=== PATIENT | male | born 1955 | race Caucasian/White ===

== ENCOUNTER → 2017-04-04 08:35 | Outpatient (CLI) | payer MEDICARE, MEDICAID, SELFPAY ==
--- NOTE | 2017-04-04 08:42 | XR_ITS ---
XR foot LT min 3V HISTORY: Pain and swelling ITS.REASON: SWELLING ORDERING PHYSICIAN: Alex Sutherland MD PATIENT AGE: 61 years COMPARISON: None FINDINGS: No fracture or dislocation. No lytic or blastic change. There is normal mineralization.. The joint spaces are well-preserved. No significant degenerative/arthritic changes. No erosive changes evident. No erosive process apparent. No soft tissue calcification IMPRESSION: Negative left foot, no acute finding
== END ==
PROVIDERS: PCP Family Medicine; Visit Provider Family Medicine
DX: R60.9 Edema, unspecified (principal)
CPT/HCPCS: 73630

== ENCOUNTER → 2017-05-02 09:32 | Outpatient (POV) | payer MEDICARE, MEDICAID, SELFPAY | PROVIDERS: Family Provider Family Medicine; PCP Family Medicine; Visit Provider Internal Medicine | DX: Z00.00 Encounter for general adult medical examination without abnormal findings (principal) ==

== ENCOUNTER → 2017-10-31 10:58 | Outpatient (POV) | payer MEDICARE, MEDICAID, SELFPAY | PROVIDERS: Family Provider Family Medicine; PCP Family Medicine; Visit Provider Internal Medicine | DX: Z00.00 Encounter for general adult medical examination without abnormal findings (principal) ==

== ENCOUNTER → 2017-11-10 13:40 | Outpatient (CLI) | payer MEDICARE, MEDICAID, SELFPAY ==
--- NOTE | 2017-11-10 13:52 | CT_ITS ---
CT chest wo con HISTORY: Abnormal weight loss, follow-up lung mass,, follow-up surgery, emphysema ITS.REASON: EMPHYSEMA,ABNORMAL WEIGHT LOSS ORDERING PHYSICIAN: Alex Knight MD PATIENT AGE: 62 years COMPARISON: 11/02/2015 Technique: Axial images obtained with sagittal and coronal reformats. All CT scans at the facility use one or more dose reduction, viz: automated exposure control, ma/kV adjustment per patient size (including targeted exams where dose is matched to indication, i.e. head), or iterative reconstruction technique. FINDINGS: No mediastinal or hilar mass or adenopathy is evident. There are coronary artery calcifications. Normal heart size. No evidence of pericardial effusion. Centrilobular emphysematous changes are present. There has been a interval right upper lobectomy with removal of the right upper lobe mass. Compensatory hyperinflation of the right middle lobe and right lower lobe has occurred as expected. There is a 10 x 6 mm nodule along the anterior aspect of the major fissure. This has somewhat irregular contour and may been present previously measuring 4 mm. This is however difficult to ascertain due to the difference in the hyperinflation. There is calcified granuloma in the right lower lobe. Fibrotic changes are present in the apices. A 4 mm nodule is present in the left lower lobe and is unchanged. Parenchymal opacity is present in the lingula probably due to an area of atelectasis or fibrosis however not readily apparent on the previous exam. This measures 7 mm. Pleural-based nodule present in the left lower lobe anteriorly. No effusions or infiltrates. No acute bony anomalies. IMPRESSION: 1. Status post right upper lobectomy with removal of the right upper lobe mass. 2. Moderate to severe centrilobular edematous changes with hyperinflation. 3. 10 x 6 mm irregular nodular opacity is present along the right major fissure within the hyperexpanded right middle lobe. This could be due to an error postinflammatory fibrosis. Neoplasm is also a consideration. 3 month follow-up or PET CT may be of further value in this patient with emphysema and weight loss. There is also a new 7 mm nodular opacity within the lingula. This however probably related to area of atelectasis or fibrosis..
== END ==
PROVIDERS: PCP Family Medicine; Visit Provider Internal Medicine
DX: R63.4 Abnormal weight loss (principal); J43.9 Emphysema, unspecified
CPT/HCPCS: 71250

== ENCOUNTER → 2018-03-20 13:19 | Outpatient (POV) | payer MEDICARE, MEDICAID, SELFPAY | PROVIDERS: Visit Provider Internal Medicine | DX: Z00.00 Encounter for general adult medical examination without abnormal findings (principal) ==

== ENCOUNTER → 2018-04-30 12:06 | Outpatient (POV) | payer MEDICARE, MEDICAID, SELFPAY | PROVIDERS: Visit Provider Specialist | DX: R29.898 Other symptoms and signs involving the musculoskeletal system (principal) | CPT/HCPCS: 95886; 95908 ==

== ENCOUNTER → 2018-05-18 09:21 | Outpatient (CLI) | payer MEDICARE, MEDICAID, SELFPAY ==
--- NOTE | 2018-05-18 09:22 | MR_ITS ---
MR cervical spine wo con, MR 3-d myelogram/MRCP HISTORY: Left side neck pain X 1-2 months. Left arm pain, numbness and tingling. ITS.REASON: cervical spondylosis ORDERING PHYSICIAN: Caryn Chicas MD PATIENT AGE: 62 years Comparison: None TECHNIQUE: Standard multiplanar multiecho sequences are performed without contrast. 3-D MIP and myelographic images are also rendered and reviewed FINDINGS: There is a moderate degree of motion artifact especially on the axial images. This somewhat limits fine detail. There is normal alignment. The craniocervical junction has an unremarkable appearance. C2-C3: Unremarkable. C3-C4: Degenerative disc disease with mild bulging disc along with mild uncovertebral hypertrophy with mild bilateral foraminal narrowing. C4-C5: Degenerative disc disease with minimal bulging disc with right-sided foraminal narrowing from uncovertebral hypertrophy. There is borderline narrowing of the canal at this level. There is increased T2 signal involving the central aspect and inferior endplate of the C4 vertebral body also with some increased signal intensity involving the superior endplate of C5. This may represent type I endplate changes. C5-C6: Degenerative disc disease with bulging disc with posterior endplate osteophytes with associated central disc protrusion/disc osteophyte complex causing central canal stenosis of 8 mm with mild flattening of the cord anteriorly. There is bilateral lateral recess and foraminal narrowing from uncovertebral hypertrophy. C6-C7: Degenerative disc disease with bulging disc slightly eccentric toward the left with narrowing of the canal at 9 mm. Mild bilateral foraminal narrowing slightly greater on the right. C7-T1: Mild degenerative disc disease with bulging disc eccentric toward the left with mild left-sided foraminal narrowing. IMPRESSION: 1. Somewhat limited exam due to patient motion artifact. 2. Multilevel degenerative disc disease with bulging disc and uncovertebral hypertrophy with bilateral foraminal narrowing. The canal stenosis is greatest at C5-C6. Please see above for detailed description at each level. 3. Type I endplate changes at C4-C5 with borderline canal stenosis and right-sided foraminal narrowing at this level. 4. Degenerative disc disease at C5-C6 with bulging disc with posterior endplate osteophytes with associated central disc protrusion/disc osteophyte complex causing central canal stenosis of 8 mm with mild flattening of the cord anteriorly. There is bilateral lateral recess and foraminal narrowing from uncovertebral hypertrophy
== END ==
PROVIDERS: PCP Family Medicine; Visit Provider Specialist
DX: G56.00 Carpal tunnel syndrome, unspecified upper limb (principal); G62.9 Polyneuropathy, unspecified; M47.22 Other spondylosis with radiculopathy, cervical region; R29.898 Other symptoms and signs involving the musculoskeletal system
CPT/HCPCS: 72141; 76376

== ENCOUNTER 2018-05-23 08:00 | Outpatient (RCR) | payer MEDICARE, MEDICAID, SELFPAY ==
--- NOTE | 2018-05-18 08:57 | HMH.PTOPEV ---
PT Outpatient Evaluation Rehab PT Outpatient Evaluation Start: 05/18/18 08:18 Freq: Status: Active Protocol: Document 05/18/18 08:18 MARJ (Rec: 05/18/18 08:57 MARJ [id number]) Electronically Signed By Charly Melendez, PT 05/18/18 08:18 Outpatient Therapy Subjective History Subjective History Pt reports insidious onset L hand/wrist pain w/N&T, beginning ~2 months ago. Pt also reports intermittent episodes of N&T in L UE from mid bicep area to hand, with weakness. 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 Chief Complaint Pain Paresthesia Weakness Symptom Type Ache Dull Numbness Tingling Symptoms Relieved By Rest/Positioning Symptoms Aggravated By Physical Activity Lifting Prior Functional Limitations Lifting Housework Current Functional Limitations Lifting Housework Symptom Description Constant but Variable Level of pain today (0-10) 2 Pain scale - at its best (0-10) 1 Pain scale - at its worst (0-10) 4 Cervical Eval Palpation Cervical Muscles L Cervical Paraspinal L Upper Trapezius Cervical/Thoracic Palpation Findings Tenderness Posture Head/C-Spine Posture Sitting Position Flexed Head/C-Spine Posture Standing Position Flexed Flexibility Deficits Upper Trapezius Muscle Length (L) Mild Tightness Passive Joint Mobility Cervical PIVM WNL: R OA L OA R AA L AA R C2/3 L C2/3 R C3/4 L C3/4 R C4/5 L C4/5 R C5/6 L C5/6 R C6/7 L C6/7 R C7/T1 L C7/T1 AROM Cervical Spine Extension Active Range of 0-50 Motion (degrees) Cervical Spine Flexion Active Range of 0-60 Motion (degrees) Cervical Spine Right Lateral Flexion 0-40 Active Range of Motion (degrees) Cervical Spine Left La
== END 2018-05-23 08:05 | disposition home or self-care (01) ==
LOC: PT 08:00
PROVIDERS: Visit Provider Specialist
DX: R29.898 Other symptoms and signs involving the musculoskeletal system (principal); M47.22 Other spondylosis with radiculopathy, cervical region; G62.9 Polyneuropathy, unspecified; G56.00 Carpal tunnel syndrome, unspecified upper limb
CPT/HCPCS: 97010; 97012; 97014; 97035; 97110; 97163; 97760; G0283

== ENCOUNTER → 2018-06-21 12:33 | Outpatient (POV) | payer MEDICARE, MEDICAID, SELFPAY | PROVIDERS: Visit Provider Neurological Surgery | DX: Z00.00 Encounter for general adult medical examination without abnormal findings (principal) ==

== ENCOUNTER → 2018-07-11 13:58 | Outpatient (CLI) | payer MEDICARE, MEDICAID, SELFPAY ==
--- NOTE | 2018-07-11 14:03 | XR_ITS ---
XR wrist LT min 3V HISTORY wrist pain ITS.REASON: 3 views ORDERING PHYSICIAN: Ruth Lowe MD PATIENT AGE: 62 years Comparison: None FINDINGS: No fracture or dislocation. No lytic or blastic change. There is normal mineralization.. The joint spaces are well-preserved. No significant degenerative/arthritic changes. No erosive changes evident.. IMPRESSION: Negative wrist
--- NOTE | 2018-07-11 14:03 | XR_ITS ---
XR wrist RT min 3V HISTORY ITS.REASON: 3 views ORDERING PHYSICIAN: Ruth Lowe MD PATIENT AGE: 62 years Comparison: None FINDINGS: No fracture or dislocation. No lytic or blastic change. There is normal mineralization.. The joint spaces are well-preserved. No significant degenerative/arthritic changes. No erosive changes evident.. IMPRESSION: Negative wrist
== END ==
PROVIDERS: PCP Family Medicine; Visit Provider Orthopaedic Surgery
DX: M25.532 Pain in left wrist (principal); M25.531 Pain in right wrist
CPT/HCPCS: 73110

== ENCOUNTER → 2018-07-17 11:55 | Outpatient (CLI) | payer MEDICARE, MEDICAID, SELFPAY ==
[2018-07-17 12:23] LABS: INR 1.02 (0.9-1.1); Prothrombin Time 10.6 seconds (9.4-11.8)
[2018-07-17 12:26] LABS: Basophils # 0.1 K/mm3 (0-0.2); Basophils % 0.9 % (0.1-2.0); Eosinophils # 0.2 K/mm3 (0.0-0.4); Eosinophils % 2.1 % (0.1-12.0); Hematocrit 49.4 % (42.0-52.0); Hemoglobin 16.4 g/dL (14.1-18.0); Lymphocytes % 22.8 % (10-50); Mean Corpuscular HGB Conc 33.2 g/dL (31.8-35.4); Mean Corpuscular Hemoglobin 33.7 pg (27.0-31.2); Mean Corpuscular Volume 101.5 fl (80-94); Mean Platelet Volume 7.3 fl (7.4-10.4); Monocytes # 0.6 K/mm3 (0.1-1.0); Monocytes % 7.3 % (1.7-9.3); Neutrophils # 5.7 K/mm3 (1.8-7.8); Neutrophils % 66.9 % (37.0-80.0); Platelet Count 331 K/mm3 (142-424); Red Blood Count 4.87 M/mm3 (4.60-6.20); White Blood Count 8.6 K/mm3 (4.8-10.8)
[2018-07-17 13:11] LABS: Alanine Aminotransferase 27 U/L (12-78); Albumin Level 4.3 gm/dL (3.4-5.0); Albumin/Globulin Ratio 1.4 (1.1-1.8); Alkaline Phosphatase 86 U/L (46-116); Anion Gap 17.5 mEq/L (5-15); Aspartate Amino Transferase 17 U/L (15-37); Bilirubin,Total 0.6 mg/dL (0.2-1.0); Blood Urea Nitrogen 15 mg/dL (7-18); Calcium 9.2 mg/dL (8.5-10.1); Carbon Dioxide 26 mmol/L (21.0-32.0); Chloride 102 mmol/L (98-107); Creatinine,Serum 0.88 mg/dL (0.70-1.30); Estimated Glomerular Filt Rate 87 ml/min (>60); GFR (African American) 106 ML/MIN (>60); Globulin 3.1 gm/dl (1.3-3.2); Glucose 98 mg/dL (74-106); Potassium 4.5 mmoL/L (3.5-5.1); Sodium 141 mmol/L (136-145); Total Protein,Serum 7.4 gm/dL (6.4-8.2)
== END ==
PROVIDERS: Visit Provider Orthopaedic Surgery
DX: Z01.818 Encounter for other preprocedural examination (principal); Z51.81 Encounter for therapeutic drug level monitoring
CPT/HCPCS: 36415; 80053; 85025; 85610

== ENCOUNTER → 2018-08-14 12:35 | Outpatient (CLI) | payer MEDICARE, MEDICAID, SELFPAY ==
--- NOTE | 2018-08-14 12:38 | CT_ITS ---
CT chest wo con HISTORY: Follow-up lung nodules ITS.REASON: PULMONARY NODULE ORDERING PHYSICIAN: Alex Knight MD PATIENT AGE: 62 years COMPARISON: 11/10/2017, 11/02/2015 Technique: Axial images obtained. Sagittal, and coronal reformatted images are also generated and reviewed. All CT scans at the facility use one or more dose reduction, viz: automated exposure control, ma/kV adjustment per patient size (including targeted exams where dose is matched to indication, i.e. head), or iterative reconstruction technique. FINDINGS: No mediastinal or hilar mass. There are coronary artery calcifications with normal heart size. COPD with centrilobular emphysema. Biapical scarring is noted as before. There has been a prior right upper lobectomy. There is compensatory hyperinflation of the right middle and right lower lobe. There is a new 10 x 5 mm opacity in the central aspect of the right upper lobe axial image #33. Just inferior to this there is a parenchymal opacity which measures 7 mm x 4 mm. This appears slightly smaller compared to the previous exam. Scattered pulmonary fibrotic changes are noted. Within the right lower lobe, there are several new parenchymal opacities which have developed in the interval. As could be due to areas of inflammation/infection. One of the areas however somewhat more well-defined measuring approximately 12 mm. Neoplasm is also considered. Calcified granuloma is present in the right lower lobe unchanged. No new abnormalities evident on the left. No acute bony findings. IMPRESSION: 1. COPD with centrilobular emphysema and scattered areas of scarring. 2. There is a new 10 x 5 mm opacity in the right upper lung zone and there are new parenchymal opacities in the right lower lobe. These are nonspecific and could be postinflammatory/infectious or neoplastic. Follow-up recommended.
== END ==
PROVIDERS: PCP Family Medicine; Visit Provider Internal Medicine
DX: R91.8 Other nonspecific abnormal finding of lung field (principal)
CPT/HCPCS: 71250

== ENCOUNTER → 2018-09-18 10:40 | Outpatient (POV) | payer MEDICARE, MEDICAID, SELFPAY ==
--- NOTE | 2018-09-18 11:51 | XR_ITS ---
XR chest 2V HISTORY: Cough, congestion, COPD ITS.REASON: pre op ORDERING PHYSICIAN: Alex Knight MD PATIENT AGE: 63 years COMPARISON: 07/24/2018 FINDINGS: Unremarkable cardiovascular structures. There is COPD with hyperexpansion and attenuation of the peripheral pulmonary vessels. No lobar consolidation or collapse Post surgical changes are present in the right hilum. There is right apical pleural thickening. IMPRESSION: COPD, postsurgical change, no change with no acute finding
[2018-09-18 12:20] LABS: Basophils # 0.1 K/mm3 (0-0.2); Eosinophils # 0.2 K/mm3 (0.0-0.4); Hematocrit 47.3 % (42.0-52.0); Hemoglobin 15.1 g/dL (14.1-18.0); Lymphocytes # 2.1 K/mm3 (0.7-4.5); Lymphocytes % 27.1 % (10-50); Mean Corpuscular Hemoglobin 32.2 pg (27.0-31.2); Mean Corpuscular Volume 100.6 fl (80-94); Monocytes # 0.6 K/mm3 (0.1-1.0); Monocytes % 7.6 % (1.7-9.3); Neutrophils # 4.8 K/mm3 (1.8-7.8); Neutrophils % 61.3 % (37.0-80.0); Platelet Count 365 K/mm3 (142-424); Red Cell Distribution Width 13.7 % (11.5-17.5); White Blood Count 7.9 K/mm3 (4.8-10.8)
[2018-09-18 13:32] LABS: Alanine Aminotransferase 25 U/L (12-78); Albumin Level 3.6 gm/dL (3.4-5.0); Albumin/Globulin Ratio 1.1 (1.1-1.8); Alkaline Phosphatase 81 U/L (46-116); Anion Gap 14.4 mEq/L (5-15); Aspartate Amino Transferase 19 U/L (15-37); Bilirubin,Total 0.5 mg/dL (0.2-1.0); Blood Urea Nitrogen 25 mg/dL (7-18); C-Reactive Protein 1.7 mg/L (0.0-0.9); Calcium 9.4 mg/dL (8.5-10.1); Carbon Dioxide 29 mmol/L (21.0-32.0); Chloride 103 mmol/L (98-107); Creatinine,Serum 0.75 mg/dL (0.70-1.30); Estimated Glomerular Filt Rate 105 ml/min (>60); GFR (African American) 127 ML/MIN (>60); Globulin 3.2 gm/dl (1.3-3.2); Glucose 79 mg/dL (74-106); Potassium 4.4 mmoL/L (3.5-5.1); Sodium 142 mmol/L (136-145); Total Protein,Serum 6.8 gm/dL (6.4-8.2)
[2018-09-20 16:10] LABS: Alpha-1-Antitrypsin 194 mg/dL (90-200)
[2018-09-21 13:51] LABS: Phenotype (PI) MS
== END ==
LOC: SC 10:41 → RAD 11:17
PROVIDERS: PCP Family Medicine; Visit Provider Internal Medicine
DX: J43.9 Emphysema, unspecified (principal); J42 Unspecified chronic bronchitis
CPT/HCPCS: 36415; 71046; 80053; 82103; 82104; 85025; 86140

== ENCOUNTER → 2018-11-06 12:53 | Outpatient (CLI) | payer MEDICARE, MEDICAID, SELFPAY ==
--- NOTE | 2018-11-06 13:06 | CT_ITS ---
PROCEDURE: CT CHEST WO CON CLINICAL INDICATION: PULMONARY NODULE, follow-up pulmonary nodule COMPARISON: CHW CT CHEST W/ CONTRAST from 11/02/[address] chest wo con from 11/10/[address] chest wo con from 08/14/2018 TECHNIQUE: Axial images obtained with sagittal and coronal reformats. All CT scans at the facility use one or more dose reduction, viz: automated exposure control, ma/kV adjustment per patient size (including targeted exams where dose is matched to indication, i.e. head), or iterative reconstruction technique. FINDINGS: Normal heart size. Coronary artery calcifications are present. COPD with centrilobular emphysema with biapical fibrosis. There are scattered noncalcified pulmonary nodular lesions once again noted. Previously noted opacities in the right lower lobe has shown improvement consistent with improving inflammatory/infectious process.. No new nodular lesions are evident. IMPRESSION: Previously noted nodular opacities in the right lung base have improved. Remaining scattered nodular densities are unchanged with no new abnormalities evident. COPD with centrilobular emphysema and scarring noted Dictated by: Bryce Darden MD 11/07/2018 11:19 Signed by: <Electronically signed by Bryce Darden MD in [facility]> 11/07/2018 11:19
== END ==
PROVIDERS: PCP Family Medicine; Visit Provider Internal Medicine
DX: R91.8 Other nonspecific abnormal finding of lung field (principal)
CPT/HCPCS: 71250

== ENCOUNTER → 2019-09-27 07:26 | Outpatient (CLI) | payer MEDICARE, OTHER, SELFPAY ==
--- NOTE | 2019-09-27 07:32 | CT_ITS ---
PROCEDURE: CT LUNG SCREENING CLINICAL INDICATION: H/O NICOTINE DEPENDENCE 168 pack year smoking history. Quit 4 years ago. COMPARISON: CT CHEST WO CON from 11/06/2018 TECHNIQUE: The exam was performed on a GE Light Speed [address] scanner using 2.90 mGy CTDI. A low dose helical CT CHEST was performed on a multi-detector scanner. All CT scans at the facility use one or more dose reduction, viz: automated exposure control, ma/kV adjustment per patient size (including targeted exams where dose is matched to indication, i.e. head), or iterative reconstruction technique. The LDCT was performed in a facility that meets the criteria for the screening program. Data regarding this exam was submitted to ACR which is an approved registry. The order for this exam indicates that it came as a result of a lung cancer screening counseling shard decision-making visit that included all the elements required of such a visit including smoking cessation. The radiologist interpreting this exam meets the CMS criteria for the LDCT lung cancer screening program. The exam is reported using the Lung-RADS classification scale and reported to the ACR registry. NOTE: This study was performed for the specific purposes of lung cancer screening and is not an alternative to diagnostic chest CT. RADIATION DOSE: CTDI vol(CT dose Index-volume) = 2.90mG DLP (Dose Length Product) = 124.81 mGcm Lung Rads Category: FINDINGS: The the the the the the the the the the the the the the the a COPD with centrilobular and paraseptal emphysema and scattered areas of scarring. There has been interval development of an irregular spiculated nodule within the right upper lobe posteriorly measuring approximately 12 mm. This abuts the major fissure causing some retraction of the major fissure anteriorly. This is suspicious for neoplasm. There is some associated bronchial thickening at this region. There is evidence of old granulomatous disease. There is some nodularity of the left major fissure at 7 x 3 mm in not significantly changed. Additional 3 mm nodule noted along the left major fissure inferiorly. The OTHER FINDINGS: Coronary artery calcifications IMPRESSION: Lung rads category 4 B moderately suspicious. 10 mm spiculated right upper lobe nodule with some associated bronchial thickening. Suggest pulmonology consult. The nodule should be accessible or tissue sampling via bronchoscopy. Also consider diagnostic chest CT without and with contrast as an area dense infiltrate/atelectatic change would be included in the differential diagnosis Dictated by: Bryce Darden MD 10/02/2019 08:48 Electronically signed by Bryce Darden MD in [place] 10/02/2019 08:48
== END ==
PROVIDERS: PCP Family Medicine; Visit Provider Family Medicine
DX: Z87.891 Personal history of nicotine dependence (principal); Z12.2 Encounter for screening for malignant neoplasm of respiratory organs

== ENCOUNTER 2019-10-22 09:22 | Outpatient (RCR) | payer MEDICARE, OTHER, SELFPAY | END 2020-07-14 13:18 | disposition home or self-care (01) | LOC: PT 09:22 | PROVIDERS: Visit Provider Internal Medicine Pulmonary Disease | DX: J43.9 Emphysema, unspecified (principal) ==

== ENCOUNTER → 2020-05-27 08:27 | Outpatient (CLI) | payer MEDICARE, OTHER, SELFPAY ==
--- NOTE | 2020-05-27 08:37 | XR_ITS ---
PROCEDURE: XR CHEST 2V CLINICAL HISTORY: ABN WEIGHT LOSS COMPARISON: CR CXR CHEST(2 VIEWS-NOT PORTABLE) from 09/18/2013 CR CXR CHEST(2 VIEWS-NOT PORTABLE) from 10/28/2015 CR [id number] XR chest portable from 07/24/[address] CHEST WO CON from 11/06/2018 FINDINGS: The cardiomediastinal silhouette and pulmonary vascularity are within normal limits. COPD changes with biapical scarring. Status post right upper lobectomy. No lobar consolidation or collapse. No acute bony abnormalities. IMPRESSION: COPD. No change with no acute finding Dictated by: Bryce Darden MD 05/27/2020 09:22 Bryce Darden MD in [place] 05/27/2020 09:22
== END ==
PROVIDERS: PCP Family Medicine Adult Medicine; Visit Provider Family Medicine Adult Medicine
DX: R63.4 Abnormal weight loss (principal)
CPT/HCPCS: 71046

== ENCOUNTER → 2020-06-26 09:45 | Outpatient (CLI) | payer MEDICARE, OTHER, SELFPAY ==
--- NOTE | 2020-06-26 09:49 | XR_ITS ---
PROCEDURE: XR WRIST RT MIN 3V CLINICAL INDICATION: RT wrist pain COMPARISON: No exams were available for comparison FINDINGS: No fracture or dislocation. No lytic or blastic change. There is normal mineralization. The joint spaces are well-preserved. No significant degenerative/arthritic changes. No erosive changes evident. Other findings:None. IMPRESSION: No acute findings. Dictated by: Bryce Darden MD 06/26/2020 17:16 Bryce Darden MD in [place] 06/26/2020 17:16
== END ==
PROVIDERS: Visit Provider Orthopaedic Surgery
DX: M25.531 Pain in right wrist (principal)
CPT/HCPCS: 73110

== ENCOUNTER → 2020-06-30 08:53 | Outpatient (CLI) | payer MEDICARE, OTHER, SELFPAY ==
--- NOTE | 2020-06-30 09:38 | CT_ITS ---
PROCEDURE: CT CHEST WO/W CON CLINCAL INDICATION: ABNORMAL WEIGHT LOSS Only hx obtained from patient, smoker, follow-up pulmonary nodule COMPARISON: CT CT CHEST WO CON from 11/06/[address] LUNG SCREENING from 09/27/2019 TECHNIQUE: IV Contrast: 75ml Isovue 370 Axial images obtained with sagittal and coronal reformats. All CT scans at the facility use one or more dose reduction, viz: automated exposure control, ma/kV adjustment per patient size (including targeted exams where dose is matched to indication, i.e. head), or iterative reconstruction technique. FINDINGS: HEART AND MEDIASTINAL STRUCTURES: No mediastinal or hilar mass or adenopathy. Coronary artery calcifications are present. No evidence of aortic aneurysm or dissection no large central pulmonary embolus evident. Peripheral pulmonary arteries are not well opacified. LUNGS AND PLEURAL SPACES: Postsurgical changes in the right hilum from prior right upper lobectomy with hyperexpansion of the right middle and right lower lobe. COPD with centrilobular and panlobular emphysematous changes. Spiculated nodular opacity once again noted in the right upper lung zone at 11 x 11 mm. This is not significantly changed. There is some volume loss in this region with some vascular crowding. The interval stability would argue against a malignant process. PET CT suggested for further evaluation. Pulmonary fibrotic changes are present. There is a new spiculated nodule in the right lower lobe posteriorly at 16 x 12 mm atelectatic or fibrotic changes are present medial to this lesion. There is mild generalized bronchial thickening. BONY STRUCTURES: No acute bony abnormalities apparent. ADDITIONAL FINDINGS: No other significant abnormalities. IMPRESSION: 1. Prior right upper lobectomy with COPD and centrilobular and panlobular emphysematous changes. Scattered areas of scarring. 2. Stable spiculated opacity in the right upper lung zone in the hyperexpanded right middle lobe. New spiculated nodular opacity in the right lower lobe at 16 x 12 mm. Either 1 of these areas could be related to neoplasm or scarring. Recommend PET-CT for further evaluation. There is some new atelectatic/fibrotic change in the right lower lobe medially. New area of atelectasis is present in the right middle lobe medially. Dictated by: Bryce Darden MD 07/01/2020 06:39 Bryce Darden MD in [place] 07/01/2020 06:39
--- NOTE | 2020-06-30 09:38 | CT_ITS ---
PROCEDURE: CT ABDOMEN PELVIS WO/W CON CLINICAL INDICATION: ABNORMAL WEIGHT LOSS Abnormal weight loss, history of lung cancer COMPARISON: CT CHW CT CHEST W/ CONTRAST from 11/02/2015 TECHNIQUE: IV Contrast: 75ML Isovue 370 Oral Contrast None Axial images obtained with sagittal and coronal reformats. All CT scans at the facility use one or more dose reduction, viz: automated exposure control, ma/kV adjustment per patient size (including targeted exams where dose is matched to indication, i.e. head), or iterative reconstruction technique. FINDINGS: The liver, spleen adrenal glands, and pancreas have an unremarkable appearance. There has been a prior cholecystectomy with mild biliary ectasia. There is a moderate amount of retained colonic feces. No intestinal obstruction or free air. The appendix is not clearly delineated. There are numerous unopacified bowel loops in the abdomen and pelvis. No obvious mass adenopathy or abnormal fluid collection evident. No acute bony findings. Grade 1 spondylitic spondylolisthesis L5-S1. No lytic or blastic changes apparent. IMPRESSION: 1. No acute finding. 2. Multiple unopacified bowel loops in the abdomen or pelvis which could obscure or mimic pathology. If symptoms persist, consider repeat exam with IV and oral contrast. Dictated by: Bryce Darden MD 07/01/2020 06:48 Bryce Darden MD in [place] 07/01/2020 06:48
--- NOTE | 2020-06-30 09:38 | CT_ITS ---
PROCEDURE: CT SOFT TISSUE NECK WO/W CON CLINICAL HISTORY: ABNORMAL WEIGHT LOSS Weight loss, history lung cancer COMPARISON: CT CT CHEST WO/W CON from 06/30/2020 TECHNIQUE: Oral Contrast: None IV Contrast: 75 mL Isovue 370 Axial images obtained with sagittal and coronal reformats. All CT scans at the facility use one or more dose reduction, viz: automated exposure control, ma/kV adjustment per patient size (including targeted exams where dose is matched to indication, i.e. head), or iterative reconstruction technique. FINDINGS: No mass, adenopathy, or abnormal fluid collections are evident. The parotid and submandibular glands have an unremarkable appearance as does the thyroid gland. The base of the uvula is slightly thickened. This is of questionable clinical significance and has a symmetric appearance. There is some tonsillar crypt calcifications. The epiglottis appears unremarkable as does the vocal folds. Upper thoracic images show centrilobular and panlobular emphysematous changes with a spiculated nodule in the right upper lung zone at 11 mm. This is described further in the chest CT performed on the same day. Mild mucosal thickening involves the ethmoid sinuses. There is moderate rightward nasal septal deviation. Mild mucosal thickening of the sphenoid sinus on the right. There are degenerative changes of the thoracic spine IMPRESSION: Essentially negative CT of the neck. Braun mm spiculated nodule right upper lung zone Dictated by: Bryce Darden MD 07/02/2020 09:50 Bryce Darden MD in [place] 07/02/2020 09:50
== END ==
PROVIDERS: PCP Family Medicine Adult Medicine; Visit Provider Family Medicine Adult Medicine
DX: R63.4 Abnormal weight loss (principal)
CPT/HCPCS: 70492; 71270; 74178; Q9967

== ENCOUNTER → 2021-06-23 08:18 | Outpatient (CLI) | payer MEDICARE, OTHER, SELFPAY ==
--- NOTE | 2021-06-23 08:28 | XR_ITS ---
FINAL REPORT CLINICAL HISTORY: wrist pain COMPARISON: 06/26/2020 FINDINGS: RIGHT WRIST 3 views were obtained. There is no acute fracture or dislocation. There are mild degenerative changes. There is no soft tissue abnormality. IMPRESSION: Degenerative change with no acute bony abnormality. Reviewed, Interpreted and Dictated by Jose Lockwood III, MD Transcribed by Kriss Burton Authenticated by Jose Lockwood III, MD on 06/23/2021 09:38:06 AM [facility]
== END ==
PROVIDERS: PCP Nurse Practitioner Family; Visit Provider Orthopaedic Surgery
DX: M25.531 Pain in right wrist (principal)
CPT/HCPCS: 73110

== ENCOUNTER → 2021-07-02 13:01 | Outpatient (CLI) | payer MEDICARE, OTHER, SELFPAY ==
--- NOTE | 2021-07-02 13:05 | CT_ITS ---
FINAL REPORT CLINICAL HISTORY: smoker for 53 years, currently smoking, smoke 2-2.5 packs per day, copd and emphysema COMPARISON: June 30, 2020 and September 27, 2019 FINDINGS: Low-Dose Chest CT CTDI vol (mGy): 2.90 DLP (mGy-cm): 116.98 Axial images were obtained from the lung apex to the mid abdomen by computed tomography. Low-dose protocol was utilized. FINDINGS: CHEST: There is no axillary adenopathy. There is no hilar or mediastinal adenopathy. The heart is proper size. There is no pericardial or pleural effusion. Limited images of the upper abdomen are unremarkable. Lung window images demonstrate moderately advanced changes of centrilobular emphysema. There is scarring at the lung apices. There is a 19 x 12 mm spiculated mass in the upper right lung which has increased in size since the previous exam and is concerning for malignancy. This finding is well seen on image 32 of series 3. The previously questioned density in the right lung base is no longer seen and is probably post-inflammatory. The left lung is clear. IMPRESSION: Increased in size spiculated mass in the upper right lung now measuring 19 x 12 mm. This finding is highly concerning for malignancy. Lung RADS category 4 B. Recommend PET scan for further evaluation. Reviewed, Interpreted and Dictated by Terry Gonzalez MD Transcribed by Amanda Evangelista Authenticated by Terry Gonzalez MD on 07/02/2021 03:05:14 PM [facility]
== END ==
PROVIDERS: PCP Nurse Practitioner Family; Visit Provider Nurse Practitioner Family
DX: Z87.891 Personal history of nicotine dependence (principal); Z12.2 Encounter for screening for malignant neoplasm of respiratory organs; R91.1 Solitary pulmonary nodule; J44.9 Chronic obstructive pulmonary disease, unspecified
CPT/HCPCS: 71271

== ENCOUNTER → 2022-04-11 10:39 | Outpatient (CLI) | payer MEDICARE, SELFPAY ==
--- NOTE | 2022-04-11 10:48 | XR_ITS ---
FINAL REPORT TECHNIQUE: 3 views CLINICAL HISTORY: UPPER BACK PAIN FINDINGS: There is no fracture present. There is no malalignment. There are no significant degenerative changes. Visualized lungs demonstrate right apical pleural thickening and linear scarring in the right perihilar region, more evident than on prior exam. IMPRESSION: No acute process. Reviewed, Interpreted and Dictated by Terry Gonzalez MD Transcribed by Codi Dowell Authenticated and [facility]
== END ==
PROVIDERS: PCP Nurse Practitioner Family; Visit Provider Nurse Practitioner Family
DX: M54.6 Pain in thoracic spine (principal)
CPT/HCPCS: 72072

== ENCOUNTER 2022-05-31 03:30 | Emergency (ER) | payer MEDICARE, SELFPAY ==
--- NOTE | 2022-05-31 03:49 | ECG_ITS ---
APPROVED REPORT Exam: Resting ECG HR:85 bpm ECG Measurements Heart Rate 85 AXES QRSd 98 QRS 11 QT 383 T 80 QTc 425 Conclusion Wandring Atrial pacemaker RIGHT VENTRICULAR CONDUCTION DELAY [RSR (QR) IN V1/V2] ABNORMAL ECG UNCONFIRMED REPORT Electronically signed by : Clay Hassan MD 06/01/2022 01:44:27
[2022-05-31 03:50] VITALS: BMI 21.7
[2022-05-31 03:52] VITALS: BP 120/76; PULSE 94; RESP 16; TEMP 36.6; O2SAT 97; BMI 21.7
--- NOTE | 2022-05-31 03:52 | XR_ITS ---
PROCEDURE INFORMATION: Exam: XR Chest Exam date and time: 05/31/2022 4:11 AM Age: 66 years old Clinical indication: Shortness of breath; Patient HX: Copd; Additional info: SOA TECHNIQUE: Imaging protocol: Radiologic exam of the chest. Views: 2 views. COMPARISON: CT LUNG SCREENING 07/02/2021 1:23 PM FINDINGS: Lungs: 2.4 cm irregular density is seen in the right upper lobe. The lungs are hyperinflated. Multiple surgical clips are seen in the hilum. Pleural spaces: Unremarkable. No pleural effusion. No pneumothorax. Heart/Mediastinum: Unremarkable. No cardiomegaly. Diaphragm: Tenting of the right hemidiaphragm is noted. Bones/joints: Unremarkable. IMPRESSION: 1. 2.4 cm irregular density right mid to upper chest underlying mass suspected, 1 was seen in this location on the prior CT. Correlation with follow-up CT recommended. 2. COPD without focal infiltrate.
[2022-05-31 04:20] LABS: Basophils # 0.1 K/mm3 (0-0.2); Basophils % 1.1 % (0.1-2.0); Eosinophils # 0.4 K/mm3 (0.0-0.4); Eosinophils % 3.4 % (0.1-12.0); Hematocrit 42.1 % (42.0-52.0); Hemoglobin 13.7 g/dL (14.1-18.0); Lymphocytes # 1.2 K/mm3 (0.7-4.5); Lymphocytes % 10.2 % (10-50); Mean Corpuscular HGB Conc 32.4 g/dL (31.8-35.4); Mean Corpuscular Hemoglobin 30.7 pg (27.0-31.2); Mean Corpuscular Volume 94.7 fl (80-94); Monocytes # 0.9 K/mm3 (0.1-1.0); Monocytes % 7.9 % (1.7-9.3); Neutrophils # 9.3 K/mm3 (1.8-7.8); Neutrophils % 77.5 % (37.0-80.0); Platelet Count 542 K/mm3 (142-424); Red Blood Count 4.45 M/mm3 (4.60-6.20); Red Cell Distribution Width 13.6 % (11.5-17.5)
[2022-05-31 04:22] LABS: Alanine Aminotransferase 20 U/L (12-78); Albumin Level 3.5 g/dl (3.5-5.0); Alkaline Phosphatase 128 U/L (38-126); Anion Gap 10.4 mEq/L (5-15); Aspartate Amino Transferase 23 U/L (17-59); Bilirubin,Total 0.6 mg/dl (0.2-1.3); Blood Urea Nitrogen 7 mg/dl (9-20); Calcium 8.3 mg/dl (8.4-10.2); Carbon Dioxide 31 mmol/L (22.0-30.0); Chloride 91 mmol/L (98-107); Creatinine Clearance Estimated 62 mL/min (50-200); Estimated Glomerular Filt Rate 166 ml/min (>60); GFR (African American) 201 ML/MIN (>60); Globulin 3.4 g/dL (1.3-3.2); Glucose 98 mg/dl (74-100); Magnesium 2.1 mg/dl (1.6-2.3); Potassium 3.4 mmoL/L (3.5-5.1); Sodium 129 mmol/L (136-145); Total Protein,Serum 6.9 g/dl (6.3-8.2)
[2022-05-31 04:23] LABS: Lactic Acid 1.1 mmol/L (0.7-2.1)
[2022-05-31 04:28] LABS: C-Reactive Protein 76.5 mg/L (0-4)
[2022-05-31 04:37] LABS: Troponin I < 0.01 ng/ml (0.00-0.034)
--- NOTE | 2022-05-31 04:53 | PC.NURSE ---
Rounded on pt. Pt/family updated on POC. Warm blanket provided.
[2022-05-31 05:00] VITALS: BP 122/74; PULSE 82; RESP 15; O2SAT 95
[2022-05-31 05:06] LABS: Erythrocyte Sedimentation Rate 58 mm/hr (0-20)
--- NOTE | 2022-05-31 05:13 | CT_ITS ---
PROCEDURE INFORMATION: Exam: CTA Chest With Contrast Exam date and time: 05/31/2022 5:32 AM Age: 66 years old Clinical indication: Shortness of breath; Additional info: SOA and pain on inspiration TECHNIQUE: Imaging protocol: Computed tomographic angiography of the chest with contrast. 3D rendering (Not supervised by radiologist): MIP and/or 3D reconstructed images were created by the technologist. Radiation optimization: All CT scans at this facility use at least one of these dose optimization techniques: automated exposure control; mA and/or kV adjustment per patient size (includes targeted exams where dose is matched to clinical indication); or iterative reconstruction. Contrast material: ISOVUE; Contrast volume: 70 ml; Contrast route: INTRAVENOUS (IV); REPORTING DATA: Count of CT and Cardiac NM exams in prior 12 months: This patient has received [address] and 0 known cardiac nuclear medicine studies in the 12 months prior to the current study. COMPARISON: CT LUNG SCREENING 07/02/2021 1:23 PM FINDINGS: Pulmonary arteries: Normal. No pulmonary emboli. Aorta: Unremarkable. No aortic aneurysm. No aortic dissection. Lungs: Severe centrilobular emphysema with large bulla in the right lung apex. Areas of linear scarring are noted. There is a cavitary lesion containing some soft tissue within the anterior right upper lobe see series 5, image 48 measuring 4.1 x 2.0 cm. This has somewhat of an irregular wall. Pleural spaces: Unremarkable. No pneumothorax. No pleural effusion. Heart: Unremarkable. No cardiomegaly. No pericardial effusion. Coronary arteries: Coronary atherosclerosis. Lymph nodes: Some calcified hilar lymph nodes. Bones/joints: Unremarkable. No acute fracture. Soft tissues: Unremarkable. IMPRESSION: 1. Severe centrilobular emphysema. Cavitary lesion in the right upper lobe contains some soft tissue may represent fungus and or neoplasm. No acute infiltrates noted. 2. Coronary atherosclerosis. COMMENTS: In the absence of a history or active diagnosis of lung cancer, it is recommended that this patient with emphysema be evaluated for enrollment in a low dose CT lung cancer screening program.
--- NOTE | 2022-05-31 05:26 | PC.NURSE ---
Pt gone to RAD via stretcher
--- NOTE | 2022-05-31 05:38 | PC.NURSE ---
Pt back from RAD
--- NOTE | 2022-05-31 05:41 | HMH.EDCP ---
Discharge Plan Disposition Patient Disposition: Home, Self-Care Prescriptions Prescriptions: No Action hydrochlorothiazide 12.5 mg capsule 12.5 mg PO DAILY aspirin [Adult Low Dose Aspirin] 81 mg tablet,delayed release (DR/EC) 81 mg PO DAILY atorvastatin 20 mg tablet 20 mg PO QDAY metoprolol tartrate 25 mg tablet 25 mg PO BID montelukast 10 mg tablet 10 mg PO QHS naproxen 500 mg tablet 500 mg PO BID omeprazole 20 mg capsule,delayed release(DR/EC) 20 mg PO QDAY albuterol sulfate [Ventolin HFA] 90 mcg/actuation HFA aerosol inhaler 2 puff INHALATION Q4-6H PRN (Reason: SOA, wheezing) nicotine (polacrilex) 4 mg gum 4 mg PO DIRECTED fluticasone propionate 50 mcg/actuation spray,suspension 2 spray INTRANASAL DAILY loratadine 10 mg tablet 10 mg PO DAILY duloxetine 30 mg capsule,delayed release(DR/EC) 30 mg PO DAILY Referrals Follow up/Referrals: Beatriz Cook APRN [Primary Care Provider] - See instructions Clinical Impressions Clinical Impression: Chest pain, pleuritic, Cavitating mass in right upper lung lobe, COPD (chronic obstructive pulmonary disease) Instructions Patient Instructions: DI for Atypical Chest Pain Discharge ED Provider: Imelda (ED)Mariusz Chest Pain HPI General Chief Complaint: Chest Pain Stated Complaint: Pain in left rib cage,burning across upper back Time Seen by Provider: 05/31/22 04:15 Mode of Arrival: Ambulatory Source of Information: Patient, Spouse and Medical Record Limitations: No Limitations Description of Symptoms (Recalled from ER Triage Doc. by RN): Pt c/o left sided upper abdominal pain that is most prominent under his ribs and worse with inspiration. States that the pain began at roughly 2200 and has not eased up. It is painful to touch. Pt states that he also has a burning in his upper back but this has been ongoing for the prior 2-3 months. History of Present Illness HPI narrative: lt sided rib pain w/o trauma which started tonight and has upper back pain also - hx of rt lung lesion and has had radiation treatment in past - hx of tob use and copd MD complaint: chest pain Onset (ago): hour(s) Duration: intermittent Pain location: left chest Severity: moderate Quality: other (burning ) CHRISTOPHER Score for Non-Stemi Age of Patient: 60-69 years old Heart Rate: 70-89 bpm Systolic Blood Pressure: 100-119 mmHg Serum Creatinine: 0.40-0.79 mg/dl CHF Killip Class: I-No CHF Other Risk Factors: None Non-Stemi Risk Score: 114 Risk Stratification: 109-140 = Intermediate Ri Related Data Home Medications Medication Instructions Recorded Confirmed aspirin 81 mg tablet,delayed 81 mg PO DAILY heart health 03/08/17 05/31/22 release (Adult Low Dose Aspirin) atorvastatin 20 mg tablet 20 mg PO QDAY Cholesterol 03/08/17 05/31/22 metoprolol tartrate 25 mg tablet 25 mg PO BID High blood pressure 03/08/17 05/31/22 montelukast 10 mg tablet 10 mg PO QHS Allergy symptoms 03/08/17 05/31/22 naproxen 500 mg tablet 500 mg PO BID Pain 03/08/17 05/31/22 omeprazole 20 mg capsule,delayed 20 mg PO QDAY Reflux/Acid reflux 03/08/17 05/31/22 release hydrochlorothiazide 12.5 mg capsule 12.5 mg PO DAILY high blood 05/14/18 05/31/22 pressure/fluid albuterol sulfate 90 mcg/actuation 2 puff inhalation Q4-6H PRN SOA, 10/11/19 05/31/22 aerosol inhaler (Ventolin HFA) wheezing duloxetine 30 mg capsule,delayed 30 mg PO DAILY Depression 05/31/22 05/31/22 release fluticasone propionate 50 2 spray intranasal DAILY Allergy 05/31/22 05/31/22 mcg/actuation nasal symptoms spray,suspension loratadine 10 mg tablet 10 mg PO DAILY Allergy symptoms 05/31/22 05/31/22 nicotine (polacrilex) 4 mg gum 4 mg PO DIRECTED smoking cess. 05/31/22 05/31/22 Allergies Allergy/AdvReac Type Severity Reaction Status Date / Time No Known Allergies Allergy Verified 06/23/21 09:20 [facility] Disclaimer: The information contained in this
[2022-05-31 06:00] VITALS: BP 116/68; PULSE 86; O2SAT 96
[2022-05-31 07:01] VITALS: BP 86/66; PULSE 87; O2SAT 96
[2022-05-31 07:09] VITALS: BP 120/70; PULSE 80; RESP 18; TEMP 36.6; O2SAT 98
== END 2022-05-31 07:23 | disposition home or self-care (01) ==
PROVIDERS: Emergency Provider Emergency Medicine; PCP Nurse Practitioner Family
DX: R09.1 Pleurisy (principal); R91.8 Other nonspecific abnormal finding of lung field; J44.9 Chronic obstructive pulmonary disease, unspecified; E87.1 Hypo-osmolality and hyponatremia; Z95.0 Presence of cardiac pacemaker
CPT/HCPCS: 71046; 71275; 80053; 83605; 83735; 84145; 84484; 85025; 85651; 86140; 93005; 96361; 96374; 96375; 99285; Q9967

== ENCOUNTER 2022-07-02 16:27 | Emergency (ER) | payer MEDICARE, OTHER, SELFPAY ==
[2022-07-02] VITALS (10 sets, daily range): BP systolic 126–157; BP diastolic 77–95; PULSE 105–122; RESP 15–22; TEMP 36.7–36.9; O2SAT 90–94; BMI 20.9
--- NOTE | 2022-07-02 | CT_ITS ---
PROCEDURE INFORMATION: Exam: CT Abdomen With Contrast Exam date and time: 07/02/2022 6:01 PM Age: 66 years old Clinical indication: Other: Abn liver images on chest CT; Additional info: Abn CT TECHNIQUE: Imaging protocol: Computed tomography of the abdomen with contrast. Radiation optimization: All CT scans at this facility use at least one of these dose optimization techniques: automated exposure control; mA and/or kV adjustment per patient size (includes targeted exams where dose is matched to clinical indication); or iterative reconstruction. Contrast material: ISOVUE; Contrast volume: 75 ml; Contrast route: IV; REPORTING DATA: Count of CT and Cardiac NM exams in prior 12 months: This patient has received [address] and 0 known cardiac nuclear medicine studies in the 12 months prior to the current study. COMPARISON: CT ABDOMEN PELVIS WO/W CON 06/30/2020 9:53 AM FINDINGS: Lungs: There is dense left lower lobe consolidation. 2 cm spiculated masslike density in the right lower lobe has increased in size from previous. Surrounding interstitial thickening noted. Pleural spaces: There is a small left pleural effusion. Liver: There has been interval development of 2 hypodense lesions in the liver, the larger measuring 4 cm in the right lobe and the smaller measuring approximally 1.5 cm in the left lobe. These appear predominantly fluid attenuation with surrounding halo of parenchymal edema. Gallbladder and bile ducts: Normal. No calcified stones. No ductal dilation. Pancreas: Normal. No ductal dilation. Spleen: Normal. No splenomegaly. Adrenal glands: Normal. No mass. Kidneys and ureters: There is a stable 1.5 cm simple cortical cyst in the upper left kidney. Right kidney appears normal. Stomach and bowel: Visualized stomach and bowel are unremarkable. No obstruction. No mucosal thickening. Intraperitoneal space: Unremarkable. No free air. No significant fluid collection. Vasculature: Diffuse atherosclerotic calcification noted in the aorta and iliac arteries. No evidence of aortic aneurysm of the section. Lymph nodes: Unremarkable. No enlarged lymph nodes. Bones/joints: Degenerative changes noted in the lumbar spine, most severe at the lumbosacral junction. There is bilateral spondylolysis and grade 1 anterolisthesis of L5. There is a 4 cm soft tissue mass in the right iliac wing with associated osseous destruction. No other osseous lesions identified. Soft tissues: Unremarkable. IMPRESSION: 1. Interval findings suggesting metastatic disease including 2 liver lesions and lytic soft tissue mass in the right iliac wing. 2. 2 cm spiculated mass in the right lower lobe which has increased in size since the prior study, raising concern for malignant lesion. Left lower lobe pneumonia also noted. Correlation with findings on recent CT chest indicated.
--- NOTE | 2022-07-02 16:31 | ECG_ITS ---
APPROVED REPORT Exam: Resting ECG HR:116 bpm ECG Measurements Heart Rate 116 AXES ME 153 P 76 QRSd 90 QRS -52 QT 341 T 83 QTc 410 Conclusion SINUS TACHYCARDIA WITH FREQUENT SUPRAVENTRICULAR PREMATURE COMPLEXES LEFT AXIS DEVIATION [QRS AXIS < -30] ANTEROSEPTAL MYOCARDIAL INFARCTION , PROBABLY OLD [40+ ms Q WAVE IN V1-V4] ABNORMAL ECG UNCONFIRMED REPORT Electronically signed by : Clay Hassan MD 07/04/2022 20:16:04
--- NOTE | 2022-07-02 17:09 | CT_ITS ---
PROCEDURE INFORMATION: Exam: CTA Chest With Contrast Exam date and time: 07/02/2022 5:51 PM Age: 66 years old Clinical indication: Dyspnea; Prior surgery; Additional info: Lung cancer S/P lobectomy, chest pain SOA TECHNIQUE: Imaging protocol: Computed tomographic angiography of the chest with contrast. 3D rendering (Not supervised by radiologist): MIP and/or 3D reconstructed images were created by the technologist. Radiation optimization: All CT scans at this facility use at least one of these dose optimization techniques: automated exposure control; mA and/or kV adjustment per patient size (includes targeted exams where dose is matched to clinical indication); or iterative reconstruction. Contrast material: ISOVUE 370; Contrast volume: 75 ml; Contrast route: INTRAVENOUS (IV); REPORTING DATA: Count of CT and Cardiac NM exams in prior 12 months: This patient has received [address] and 0 known cardiac nuclear medicine studies in the 12 months prior to the current study. COMPARISON: CT ANGIO CHEST PE PROTOCOL 05/31/2022 5:32 AM FINDINGS: Pulmonary arteries: Normal. No pulmonary emboli. Aorta: Unremarkable. No aortic aneurysm. No aortic dissection. Lungs: There is significant left lower lobe consolidation. More mild right lower lobe infiltrate noted as well as 2 cm spiculated right lower lobe lung mass. Pleural spaces: There are minimal bilateral pleural effusions. No pneumothorax. Heart: Unremarkable. No cardiomegaly. No pericardial effusion. Coronary arteries: Coronary artery calcifications are noted. Lymph nodes: Unremarkable. No enlarged lymph nodes. Liver: Partially visualized liver lesions noted in the upper abdomen, as described on CT abdomen from the same day. Bones/joints: Mild degenerative changes noted in the thoracic spine. There is a 7.4 cm soft tissue mass centered in the posterior elements of the upper thoracic spine at the level of T4 producing osseous destruction of the posterior elements of T4, posterior portion of the T4 vertebra and adjacent portions of the bilateral 4th ribs. This appears to produce near-complete obliteration of the central spinal canal at the T4 level. Soft tissues: Unremarkable. IMPRESSION: 1. Findings compatible with metastatic malignancy including a 7.4 cm upper thoracic spine mass producing near-complete obliteration of the central spinal canal and partial destruction of the osseous structures at T4 and liver lesions as described on CT abdomen from the same day. 2. Bilateral lower lobe infiltrates concerning for pneumonia, particularly in the left lower lobe. 2 cm spiculated masslike density in the right lower lobe may represent an area of infiltrate or malignant lesion. COMMENTS: In the absence of a history or active diagnosis of lung cancer, it is recommended that this patient with emphysema be evaluated for enrollment in a low dose CT lung cancer screening program.
--- NOTE | 2022-07-02 17:10 | XR_ITS ---
PROCEDURE INFORMATION: Exam: XR Pelvis Exam date and time: 07/02/2022 6:19 PM Age: 66 years old Clinical indication: Injury or trauma; Other: Fall from standing position; Additional info: Falls TECHNIQUE: Imaging protocol: Radiologic exam of the pelvis. Views: 1 or 2 view. COMPARISON: CT BONY PELVIS 07/02/2022 5:49 PM FINDINGS: Bones/joints: There is cam deformity of the bilateral femoral heads. Osseous alignment is normal. No acute fracture. No significant arthritic change. Soft tissues: Unremarkable. IMPRESSION: No acute abnormality. Cam deformity of the bilateral femoral heads noted.
--- NOTE | 2022-07-02 17:10 | XR_ITS ---
PROCEDURE INFORMATION: Exam: XR Right Femur Exam date and time: 07/02/2022 6:19 PM Age: 66 years old Clinical indication: Injury or trauma; Fall; Additional info: Falls TECHNIQUE: Imaging protocol: Radiologic exam of the right femur. Views: 2 views. COMPARISON: CT BONY PELVIS 07/02/2022 5:49 PM FINDINGS: Bones/joints: Osseous alignment is normal. No acute fracture or significant arthritic change. Cam deformity of the right femoral head/neck noted. No other significant abnormality Soft tissues: Unremarkable. IMPRESSION: Cam deformity of the right femur noted. No acute fracture
--- NOTE | 2022-07-02 17:10 | CT_ITS ---
PROCEDURE INFORMATION: Exam: CT Pelvis Without Contrast; Skeletal Exam date and time: 07/02/2022 5:49 PM Age: 66 years old Clinical indication: Pelvic pain; Additional info: R traumatic pelvic pain TECHNIQUE: Imaging protocol: Computed tomography of the pelvis without contrast. Exam focused on the skeleton. Radiation optimization: All CT scans at this facility use at least one of these dose optimization techniques: automated exposure control; mA and/or kV adjustment per patient size (includes targeted exams where dose is matched to clinical indication); or iterative reconstruction. REPORTING DATA: Count of CT and Cardiac NM exams in prior 12 months: This patient has received [address] and 0 known cardiac nuclear medicine studies in the 12 months prior to the current study. COMPARISON: CT ABDOMEN PELVIS WO/W CON 06/30/2020 9:53 AM FINDINGS: Vasculature: Atherosclerotic calcification noted in the aorta and iliac arteries. Bones/joints: 4 cm soft tissue mass with associated osseous destruction noted in the right iliac wing. No other focal osseous lesions evident. There is bilateral spondylolysis and grade 1 anterolisthesis of L5. There are severe degenerative disc changes and associated severe bilateral neural foraminal stenosis at the lumbosacral junction. No acute fracture. Soft tissues: Unremarkable. IMPRESSION: 1. 4 cm lytic soft tissue mass in the right iliac wing compatible with metastatic bone lesion 2. Spondylolysis and grade 1 anterolisthesis of L5 with associated severe degenerative changes of the lumbosacral junction
--- NOTE | 2022-07-02 17:15 | HMH.EDGENADL ---
Discharge Plan Disposition Patient Disposition: Xfer Short-Term Hosp Condition: Serious Chief Complaint: Chest Pain Prescriptions Prescriptions: No Action hydrochlorothiazide 12.5 mg capsule 12.5 mg PO DAILY aspirin [Adult Low Dose Aspirin] 81 mg tablet,delayed release (DR/EC) 81 mg PO DAILY atorvastatin 20 mg tablet 20 mg PO QDAY metoprolol tartrate 25 mg tablet 25 mg PO BID montelukast 10 mg tablet 10 mg PO QHS naproxen 500 mg tablet 500 mg PO BID omeprazole 20 mg capsule,delayed release(DR/EC) 20 mg PO QDAY albuterol sulfate [Ventolin HFA] 90 mcg/actuation HFA aerosol inhaler 2 puff INHALATION Q4-6H PRN (Reason: SOA, wheezing) nicotine (polacrilex) 4 mg gum 4 mg PO DIRECTED fluticasone propionate 50 mcg/actuation spray,suspension 2 spray INTRANASAL DAILY loratadine 10 mg tablet 10 mg PO DAILY duloxetine 30 mg capsule,delayed release(DR/EC) 30 mg PO DAILY Referrals Follow up/Referrals: Alyssa Osborne APRN [Primary Care Provider] - See instructions Clinical Impressions Clinical Impression: Metastatic disease, Malignant neoplasm of thoracic vertebra, Acute hypokalemia, Pneumonia Discharge ED Provider: Alphonse Aiken General Adult HPI General Chief complaint: Chest Pain Stated complaint: SOA Time Seen by Provider: 07/02/22 17:05 Mode of Arrival: Wheelchair Source of Information: Patient and Relative Limitations: No Limitations Description of Symptoms (Recalled from ER Triage Doc. by RN): c/o burning and pain t/o his chest for 2-3 months, started after he started radiation for a like CA that they were treating like CA but it wasnt. PT was assisted in the lobby due to being on the floor upon arrival, pt states that his right hip gave out and caused him to go down, denies any other injury or LOC from fall. History of Present Illness HPI narrative: Patient is a 66-year-old male with past medical history of COPD not on home oxygen, lung mass status post surgical resection and radiation 3 months ago with chronic chest pain who presents emergency department for evaluation of chest pain. It is bandlike, across his chest, persistent. Patient has short of breath that is at his baseline, chronic cough with no acute worsening. He has had 2 falls over the last 24 hours when his right leg reportedly gives out causing ground-level falls with resultant right hip pain. No other acute complaints at this time. Patient denies striking his head or loss of consciousness. Related Data Home Medications Medication Instructions Recorded Confirmed aspirin 81 mg tablet,delayed 81 mg PO DAILY heart health 03/08/17 05/31/22 release (Adult Low Dose Aspirin) atorvastatin 20 mg tablet 20 mg PO QDAY Cholesterol 03/08/17 05/31/22 metoprolol tartrate 25 mg tablet 25 mg PO BID High blood pressure 03/08/17 05/31/22 montelukast 10 mg tablet 10 mg PO QHS Allergy symptoms 03/08/17 05/31/22 naproxen 500 mg tablet 500 mg PO BID Pain 03/08/17 05/31/22 omeprazole 20 mg capsule,delayed 20 mg PO QDAY Reflux/Acid reflux 03/08/17 05/31/22 release hydrochlorothiazide 12.5 mg capsule 12.5 mg PO DAILY high blood 05/14/18 05/31/22 pressure/fluid albuterol sulfate 90 mcg/actuation 2 puff inhalation Q4-6H PRN SOA, 10/11/19 05/31/22 aerosol inhaler (Ventolin HFA) wheezing duloxetine 30 mg capsule,delayed 30 mg PO DAILY Depression 05/31/22 05/31/22 release fluticasone propionate 50 2 spray intranasal DAILY Allergy 05/31/22 05/31/22 mcg/actuation nasal symptoms spray,suspension loratadine 10 mg tablet 10 mg PO DAILY Allergy symptoms 05/31/22 05/31/22 nicotine (polacrilex) 4 mg gum 4 mg PO DIRECTED smoking cess. 05/31/22 05/31/22 Allergies Allergy/AdvReac Type Severity Reaction Status Date / Time No Known Allergies Allergy Verified 06/23/21 09:20 [facility] Disclaimer: The information contained in this section may have been updated after the
[2022-07-02 17:27] LABS: Basophils % 0.2 % (0.1-2.0); Eosinophils # 0.2 K/mm3 (0.0-0.4); Hematocrit 42.2 % (42.0-52.0); Hemoglobin 13.7 g/dL (14.1-18.0); Lymphocytes # 1.1 K/mm3 (0.7-4.5); Lymphocytes % 5.1 % (10-50); Mean Corpuscular HGB Conc 32.4 g/dL (31.8-35.4); Mean Corpuscular Hemoglobin 29.8 pg (27.0-31.2); Mean Corpuscular Volume 92.2 fl (80-94); Mean Platelet Volume 8.1 fl (7.4-10.4); Monocytes # 0.8 K/mm3 (0.1-1.0); Monocytes % 4.2 % (1.7-9.3); Neutrophils # 18.1 K/mm3 (1.8-7.8); Neutrophils % 89.4 % (37.0-80.0); Platelet Count 666 K/mm3 (142-424); Red Blood Count 4.58 M/mm3 (4.60-6.20); Red Cell Distribution Width 14.5 % (11.5-17.5); White Blood Count 20.2 K/mm3 (4.8-10.8)
[2022-07-02 17:29] LABS: Chloride 91 mmol/L (98-107); MANUAL DIFFERENTIAL MANUAL DIFFERENTIAL (MANUAL DIFF); Sodium 135 mmol/L (136-145)
[2022-07-02 17:31] LABS: Blood Urea Nitrogen 3 mg/dl (9-20); Creatinine Clearance Estimated 60 mL/min (50-200); Estimated Glomerular Filt Rate 134 ml/min (>60); GFR (African American) 163 ML/MIN (>60)
[2022-07-02 17:32] LABS: Alanine Aminotransferase 22 U/L (12-78); Albumin Level 3.3 g/dl (3.5-5.0); Albumin/Globulin Ratio 0.8 (1.1-1.8); Alkaline Phosphatase 180 U/L (38-126); Anion Gap 16.6 mEq/L (5-15); Aspartate Amino Transferase 26 U/L (17-59); Bilirubin,Total 0.7 mg/dl (0.2-1.3); Carbon Dioxide 30 mmol/L (22.0-30.0); Globulin 3.9 g/dL (1.3-3.2); Total Protein,Serum 7.2 g/dl (6.3-8.2)
[2022-07-02 17:33] LABS: Calcium 8.8 mg/dl (8.4-10.2); Glucose 101 mg/dl (74-100)
[2022-07-02 17:38] LABS: Potassium 2.6 mmoL/L (3.5-5.1)
[2022-07-02 17:41] LABS: Eosinophils % 2 % (0-3); Lymphocytes % 7 % (10-50); Monocytes % 1 % (2-9); Neutrophils % 90 % (42-76); Total Cells Counted 100
[2022-07-02 17:42] LABS: Platelet Estimate Moderate Increase; RBC Morphology Normal
[2022-07-02 17:45] LABS: Troponin I < 0.01 ng/ml (0.00-0.034)
--- NOTE | 2022-07-02 19:25 | PC.NURSE ---
Shift report received from Marylou Diez RN. Shortly thereafter, pt called out d/t my arm is burning . Assessed his IV that his IV potassium is infusing to and it was infiltrated. Potassium/NS infusion was stopped and PIV d/c and dressing applied. Pt states I will take the pills. notified of this.
--- NOTE | 2022-07-02 19:35 | PC.NURSE ---
Called [facility] to power share pt's images to [facility]
--- NOTE | 2022-07-02 19:36 | PC.NURSE ---
Dr. Aiken speaking with Dr. Benton [facility]
--- NOTE | 2022-07-02 19:38 | PC.NURSE ---
Pt accepted at by Dr. Alvarenga. Dr. Aiken at BS to update pt
--- NOTE | 2022-07-02 20:01 | PC.NURSE ---
Called [place] for transfer to - [facility]
== END 2022-07-02 20:53 | disposition short-term general hospital (02) ==
PROVIDERS: Emergency Provider Emergency Medicine; PCP Nurse Practitioner Family
DX: R07.9 Chest pain, unspecified (principal); J44.9 Chronic obstructive pulmonary disease, unspecified; C41.2 Malignant neoplasm of vertebral column; E87.6 Hypokalemia; J18.9 Pneumonia, unspecified organism; F17.210 Nicotine dependence, cigarettes, uncomplicated
CPT/HCPCS: 71275; 72170; 72192; 73552; 74160; 80053; 84484; 85007; 85025; 87040; 93005; 96361; 96374; 96375; 99291; J0456; J0696; Q9967

== ENCOUNTER → 2022-08-17 08:50 | Outpatient (CLI) | payer MEDICARE, OTHER, SELFPAY ==
--- NOTE | 2022-08-17 09:04 | XR_ITS ---
FINAL REPORT CLINICAL HISTORY: closed fx rt hip, osteoporosis screening COMPARISON: None FINDINGS: Using L1-4, the bone mineral density of the spine is 0.700 g/cm2, corresponding to T-score of -3.6, consistent with osteoporosis. Using the left hip, the bone mineral density of the femoral neck is 0.501 g/cm2, corresponding to a T-score of -3.5, consistent with osteoporosis. Using the right hip, the bone mineral density of the femoral neck is 0.473 g/cm2, corresponding to a T-score of -3.4, consistent with osteoporosis. FRAX not reported because T score for spine total or hip total at or below -2.5. NOTE: T-score: Standard deviation compared with peak bone mass of young adult mean. *Following the recommendations of the International Society of Bone densitometry, classification of hip BMD is based on the lower of two T-scores; total hip or femoral neck. IMPRESSION: Diminished bone mineral density consistent with osteoporosis. Reviewed, Interpreted and Dictated by Jose Lockwood III, MD Transcribed by Sherlyn Rinaldi Authenticated and . [facility]
== END ==
PROVIDERS: PCP Family Medicine; Visit Provider Nurse Practitioner Family
DX: M81.0 Age-related osteoporosis without current pathological fracture (principal); S72.001D Fracture of unspecified part of neck of right femur, subsequent encounter for closed fracture with routine healing
CPT/HCPCS: 77080

== ENCOUNTER → 2022-08-23 14:48 | Outpatient (CLI) | payer MEDICARE, OTHER, SELFPAY ==
--- NOTE | 2022-08-23 14:55 | XR_ITS ---
FINAL REPORT CLINICAL HISTORY: Rt hip pain COMPARISON: 07/02/2022 FINDINGS: Right hip Three views were obtained. There is no acute fracture or dislocation. The joint spaces appear normal. No soft tissue abnormality is identified. IMPRESSION: No acute process. Reviewed, Interpreted and Dictated by Terry Gonzalez MD Transcribed by Aminah Alarcon Authenticated and [facility]
== END ==
PROVIDERS: PCP Family Medicine; Visit Provider Orthopaedic Surgery
DX: M25.551 Pain in right hip (principal)
CPT/HCPCS: 73502

== ENCOUNTER → 2022-09-01 09:48 | Outpatient (CLI) | payer MEDICARE, OTHER, SELFPAY ==
[2022-09-01 10:40] LABS: Basophils # 0.1 K/mm3 (0-0.2); Basophils % 0.3 % (0.1-2.0); Eosinophils # 0.1 K/mm3 (0.0-0.4); Eosinophils % 0.6 % (0.1-12.0); Hematocrit 39.8 % (42.0-52.0); Hemoglobin 12.4 g/dL (14.1-18.0); Lymphocytes # 1.8 K/mm3 (0.7-4.5); Lymphocytes % 8.9 % (10-50); Mean Corpuscular HGB Conc 31.1 g/dL (31.8-35.4); Mean Corpuscular Volume 93.2 fl (80-94); Mean Platelet Volume 7.9 fl (7.4-10.4); Monocytes % 4.8 % (1.7-9.3); Neutrophils # 16.8 K/mm3 (1.8-7.8); Neutrophils % 85.3 % (37.0-80.0); Platelet Count 599 K/mm3 (142-424); Red Blood Count 4.27 M/mm3 (4.60-6.20); Red Cell Distribution Width 17.4 % (11.5-17.5); White Blood Count 19.7 K/mm3 (4.8-10.8)
[2022-09-01 10:45] LABS: MANUAL DIFFERENTIAL MANUAL DIFFERENTIAL (MANUAL DIFF)
[2022-09-01 11:22] LABS: Alanine Aminotransferase 41 U/L (12-78); Albumin Level 3.2 g/dl (3.5-5.0); Albumin/Globulin Ratio 0.8 (1.1-1.8); Alkaline Phosphatase 333 U/L (38-126); Anion Gap 17.2 mEq/L (5-15); Aspartate Amino Transferase 48 U/L (17-59); Bilirubin,Total 0.8 mg/dl (0.2-1.3); Blood Urea Nitrogen 9 mg/dl (9-20); Calcium 8.6 mg/dl (8.4-10.2); Carbon Dioxide 30 mmol/L (22.0-30.0); Chloride 87 mmol/L (98-107); Estimated Glomerular Filt Rate 214 ml/min (>60); GFR (African American) 259 ML/MIN (>60); Globulin 3.8 g/dL (1.3-3.2); Glucose 105 mg/dl (74-100); Potassium 3.2 mmoL/L (3.5-5.1); Sodium 131 mmol/L (136-145)
[2022-09-01 13:18] LABS: Lymphocytes % 13 % (10-50); Monocytes % 7 % (2-9); Neutrophils % 80 % (42-76); Total Cells Counted 100
[2022-09-01 13:19] LABS: Platelet Estimate Slight Increase; RBC Morphology Normal
== END ==
PROVIDERS: PCP Family Medicine; Visit Provider Internal Medicine Medical Oncology
DX: C34.91 Malignant neoplasm of unspecified part of right bronchus or lung (principal); C79.9 Secondary malignant neoplasm of unspecified site
CPT/HCPCS: 36415; 80053; 85007; 85025

== ENCOUNTER 2022-09-07 11:20 | Outpatient (CLI) | payer MEDICARE, OTHER, SELFPAY ==
[2022-09-07] VITALS (9 sets, daily range): BP systolic 99–109; BP diastolic 58–70; PULSE 110–116; RESP 18; TEMP 37.2; O2SAT 90; BMI 18.6
[2022-09-07 12:00] LABS: Chloride 84 mmol/L (98-107)
[2022-09-07 12:01] LABS: Sodium 125 mmol/L (136-145)
[2022-09-07 12:03] LABS: Alanine Aminotransferase 104 U/L (12-78); Alkaline Phosphatase 322 U/L (38-126); Aspartate Amino Transferase 73 U/L (17-59); Bilirubin,Total 0.6 mg/dl (0.2-1.3); Blood Urea Nitrogen 7 mg/dl (9-20); Creatinine Clearance Estimated 52 mL/min (50-200); Estimated Glomerular Filt Rate 214 ml/min (>60); GFR (African American) 259 ML/MIN (>60)
[2022-09-07 12:04] LABS: Albumin/Globulin Ratio 0.8 (1.1-1.8); Calcium 8.2 mg/dl (8.4-10.2); Carbon Dioxide 33 mmol/L (22.0-30.0); Globulin 3.9 g/dL (1.3-3.2); Glucose 95 mg/dl (74-100); Total Protein,Serum 6.9 g/dl (6.3-8.2)
[2022-09-07 12:11] LABS: Basophils % 0.1 % (0.1-2.0); Eosinophils # 0.1 K/mm3 (0.0-0.4); Eosinophils % 0.5 % (0.1-12.0); Hematocrit 36.3 % (42.0-52.0); Hemoglobin 11.6 g/dL (14.1-18.0); Lymphocytes # 1.4 K/mm3 (0.7-4.5); Lymphocytes % 6.7 % (10-50); Mean Corpuscular HGB Conc 31.8 g/dL (31.8-35.4); Mean Corpuscular Hemoglobin 29.2 pg (27.0-31.2); Mean Corpuscular Volume 91.9 fl (80-94); Mean Platelet Volume 8.5 fl (7.4-10.4); Monocytes # 1.2 K/mm3 (0.1-1.0); Monocytes % 5.6 % (1.7-9.3); Neutrophils # 18.4 K/mm3 (1.8-7.8); Neutrophils % 87.1 % (37.0-80.0); Platelet Count 463 K/mm3 (142-424); Red Blood Count 3.95 M/mm3 (4.60-6.20); Red Cell Distribution Width 17.2 % (11.5-17.5); White Blood Count 21.1 K/mm3 (4.8-10.8)
[2022-09-07 12:35] LABS: MANUAL DIFFERENTIAL MANUAL DIFFERENTIAL (MANUAL DIFF)
[2022-09-07 12:38] LABS: Thyroid Stimulating Hormone 2.49 uIU/mL (0.465-4.68)
[2022-09-07 13:58] LABS: Eosinophils % 1 % (0-3); Lymphocytes % 11 % (10-50); Monocytes % 3 % (2-9); Neutrophils % 85 % (42-76); Platelet Estimate Slight Increase; RBC Morphology Normal; Total Cells Counted 100
--- NOTE | 2022-09-07 16:00 | PC.NURSE ---
1205- Emelia Maddox from lab called critical lab results of K+ 3.0 to this RN. pt name, and lab results verified and read back by RN. MD Toi notified and ordered 20meq PO potassium today.
== END 2022-09-07 15:10 | disposition home or self-care (01) ==
LOC: INF 11:22
PROVIDERS: PCP Nurse Practitioner Family; Visit Provider Internal Medicine Medical Oncology
DX: J98.4 Other disorders of lung (principal); Z79.899 Other long term (current) drug therapy; C34.91 Malignant neoplasm of unspecified part of right bronchus or lung; Z51.11 Encounter for antineoplastic chemotherapy
CPT/HCPCS: 80053; 82533; 84443; 85007; 85025; 96411; 96413; 96417; J2469; J8501; J9045; J9271; J9305

== ENCOUNTER 2022-09-15 07:38 | Emergency (ER) | payer MEDICARE, OTHER, SELFPAY ==
[2022-09-15] VITALS (14 sets, daily range): BP systolic 103–126; BP diastolic 66–92; PULSE 100–115; RESP 17–20; TEMP 36.8; O2SAT 92–98; BMI 18.6
--- NOTE | 2022-09-15 07:53 | PC.NURSE ---
Family at BS
--- NOTE | 2022-09-15 08:51 | XR_ITS ---
FINAL REPORT CLINICAL HISTORY: SEVERE BACK PAIN, HX OF BONE METS, LUNG CANCER COMPARISON: 08/23/2022 FINDINGS: LUMBAR SPINE Two views demonstrate no acute fracture. There is mild and moderate degenerative change. There is L5-S1 disc space narrowing. There is a mild L5 compression fracture of uncertain age. There is no malalignment. There is irregularity of the right iliac wing consistent with a subacute fracture, this may represent a pathologic fracture. IMPRESSION: Mild and moderate degenerative change. Mild L5 compression fracture of uncertain age. If indicated, an MRI may be helpful. Subacute fracture of the right iliac wing, may be pathologic. Reviewed, Interpreted and Dictated by Jose Lockwood III, MD Transcribed by Ria Patterson Authenticated and . [facility]
--- NOTE | 2022-09-15 08:55 | HMH.EDGENADL ---
Discharge Plan Disposition Patient Disposition: Home, Self-Care Condition: Good Chief Complaint: Back Pain/Injury Prescriptions Prescriptions: No Action sennosides [senna] 8.6 mg tablet 8.6 mg PO QID atorvastatin 20 mg tablet 20 mg PO DAILY ipratropium-albuterol 0.5 mg-3 mg(2.5 mg base)/3 mL solution for nebulization 3 ml INHALATION Q4-6H PRN (Reason: Breathing Problems) lidocaine 4 % adhesive patch,medicated 1 patch TOPICAL DAILYP PRN (Reason: Pain) oxycodone-acetaminophen 10-325 mg tablet 1 tab PO TID folic acid 1 mg tablet 1 mg PO DAILY montelukast 10 mg tablet 10 mg PO DAILY loratadine 10 mg tablet 10 mg PO DAILY oxycodone 5 mg tablet 5 mg PO QID metoprolol tartrate 25 mg tablet 25 mg PO BID calcium carbonate-vitamin D3 [Oyster Shell Calcium-Vit D3] 500 mg-5 mcg (200 unit) tablet 1 tab PO DAILY Tab-A-Julien Multivitamin w-iron 18-400 mg-mcg tablet 1 tab PO DAILY Referrals Follow up/Referrals: Franklin Troy MD [Primary Care Provider] - See instructions Activity Restrictions/Add. Instructions Additional Instructions/Restrictions: Follow-up with oncology in about an hour. Follow-up with hospice if desired. Home medication as directed Clinical Impressions Clinical Impression: Chronic pain due to neoplasm Metastatic disease Qualifiers: Area of secondary neoplastic involvement: bone Qualified Code(s): C79.51 - Secondary malignant neoplasm of bone Lung cancer Qualifiers: Laterality: unspecified laterality Lung location: unspecified part of lung Qualified Code(s): C34.90 - Malignant neoplasm of unspecified part of unspecified bronchus or lung Instructions Patient Instructions: DI for Low Back Pain Discharge ED Provider: Abebe Cheney Adult HPI General Chief complaint: Back Pain/Injury Stated complaint: Back Pain Time Seen by Provider: 09/15/22 08:51 Mode of Arrival: EMS Source of Information: Patient and EMS Limitations: Physical Limitations Description of Symptoms (Recalled from ER Triage Doc. by RN): 67 M presents via EMS from home with c/o worsening back pain. Patient recently diagnosed with Lung Cancer with mets to his bones. Patient reports a sudden onset of acute 10/10 low back pain around 2300 last night. No loss of bowel or bladder. Patient reports normal sensation; however, he reports it hurts too much to do anything. He took an Oxycodone prior to EMS arrival, but it is not working. History of Present Illness HPI narrative: 67yo M presents to the ER secondary to worsening low back pain. Patient has a history of lung cancer with metastasis to multiple bones. Denies fall, heavy lifting, other injury. Taking home pain medication as directed with little improvement Related Data Home Medications Medication Instructions Recorded Confirmed atorvastatin 20 mg tablet 20 mg PO DAILY High Cholesterol 09/15/22 09/15/22 calcium carbonate 500 mg-vitamin 1 tab PO DAILY Supplement 09/15/22 09/15/22 D3 5 mcg (200 unit) tablet (Oyster Shell Calcium-Vitamin D3) folic acid 1 mg tablet 1 mg PO DAILY Supplement 09/15/22 09/15/22 ipratropium 0.5 mg-albuterol 3 mg 3 ml inhalation Q4-6H PRN 09/15/22 09/15/22 (2.5 mg base)/3 mL nebulization Breathing Problems soln lidocaine 4 % topical patch 1 patch topical DAILYP PRN Pain 09/15/22 09/15/22 loratadine 10 mg tablet 10 mg PO DAILY Allergy Symptoms 09/15/22 09/15/22 metoprolol tartrate 25 mg tablet 25 mg PO BID High Blood Pressure 09/15/22 09/15/22 montelukast 10 mg tablet 10 mg PO DAILY Allergy Symptoms 09/15/22 09/15/22 multivitamin-ferrous 1 tab PO DAILY Supplement 09/15/22 09/15/22 fumarate-folic acid 18 mg-400 mcg tablet (Tab-A-Julien Multivitamin w-iron) oxycodone 5 mg tablet 5 mg PO QID Pain 09/15/22 09/15/22 oxycodone-acetaminophen 10 mg-325 1 tab PO TID Pain 09/15/22 09/15/22 mg tablet sennosides 8.6 mg tablet (senna) 8.6 mg PO QID Constipation 09/15/22 07
--- NOTE | 2022-09-15 08:56 | PC.NURSE ---
Spoke to Sofya at [facility] for potential Hospice referral per patient and attending conversation. Information faxed to [facility] and awaiting their call back.
--- NOTE | 2022-09-15 09:28 | PC.NURSE ---
warm blanket provided for pt
--- NOTE | 2022-09-15 10:36 | PC.NURSE ---
Waiting for Niki with Hospice to arrive for consult with patient and family.
--- NOTE | 2022-09-15 12:28 | PC.NURSE ---
Calling back to [facility] for update on time
--- NOTE | 2022-09-15 12:30 | PC.NURSE ---
Rounded on patient & family; They are finished with their meal trays at this time. Pt requesting a warm blanket. Call godwin within reach. Pt and family aware that we are waiting on Niki from Hospice to come and speak with them
--- NOTE | 2022-09-15 12:40 | PC.NURSE ---
Hospice here for patient evaluation
== END 2022-09-15 13:44 | disposition home or self-care (01) ==
PROVIDERS: Emergency Provider Family Medicine; PCP Family Medicine
DX: G89.3 Neoplasm related pain (acute) (chronic) (principal); C34.90 Malignant neoplasm of unspecified part of unspecified bronchus or lung; C79.51 Secondary malignant neoplasm of bone; Z87.891 Personal history of nicotine dependence
CPT/HCPCS: 72100; 99283; 99284

== ENCOUNTER 2022-09-22 15:35 | Emergency (ER) | payer MEDICARE, OTHER, SELFPAY ==
[2022-09-22] VITALS (9 sets, daily range): BP systolic 98–128; BP diastolic 62–85; PULSE 105–142; RESP 12–19; TEMP 36.8–37.2; O2SAT 95–99; BMI 18.6
--- NOTE | 2022-09-22 16:23 | ECG_ITS ---
APPROVED REPORT Exam: Resting ECG HR:138 bpm ECG Measurements Heart Rate 138 AXES QRSd 94 QRS -34 QT 289 T 90 QTc 370 Conclusion Sinus tachycardia with short MA LEFT AXIS DEVIATION [QRS AXIS < -30] Poor r wave progression ABNORMAL ECG UNCONFIRMED REPORT Electronically signed by : Clay Hassan MD 09/22/2022 21:21:10
--- NOTE | 2022-09-22 16:33 | CT_ITS ---
PROCEDURE INFORMATION: Exam: CT Abdomen And Pelvis With Contrast Exam date and time: 09/22/2022 5:00 PM Age: 67 years old Clinical indication: Other: No urine; Patient HX: History of lung cancer. PT has bone cancer; Additional info: Cancer PT, no bm x2d, no urine today TECHNIQUE: Imaging protocol: Computed tomography of the abdomen and pelvis with contrast. Radiation optimization: All CT scans at this facility use at least one of these dose optimization techniques: automated exposure control; mA and/or kV adjustment per patient size (includes targeted exams where dose is matched to clinical indication); or iterative reconstruction. Contrast material: ISOVUE; Contrast volume: 75 ml; Contrast route: IV; REPORTING DATA: Count of CT and Cardiac NM exams in prior 12 months: This patient has received 4 known CTs and 0 known cardiac nuclear medicine studies in the 12 months prior to the current study. COMPARISON: 1. CT ABDOMEN W CON 07/02/2022 6:[address] BONY PELVIS 07/02/2022 5:49 PM FINDINGS: Lungs: Patchy airspace and nodular opacities in the included lung bases. Tree-in-bud nodularity more notable on the left. Small calcified granuloma in the right lung base. Pulmonary emphysema. Liver: Multiple hypoattenuating lesions in both lobes of the liver, multiple of which demonstrate peripheral halo of enhancement. Lesions have progressed in number and size from prior. For example, largest lesion is in the posterior right hepatic lobe lesion measures 5.9 x 5.3 cm (series 4, image 33), previously 3.6 x 3.3 cm. Gallbladder and bile ducts: Status post cholecystectomy. Pancreas: Pancreas is normal. No ductal dilatation. Spleen: Spleen demonstrates 2 less than 5 mm non-specific hypodensities and calcified granuloma. Adrenal glands: Adrenal glands are normal. No mass. Kidneys and ureters: Right kidney with few small cortical hypodensities, largest measuring 5 mm, too small to characterize, not definitively seen on prior study. Heterogeneous 1.5 cm left renal lesion in the lower pole (series 4, image 39), new from prior. Stable 1.3 cm hypodensity in the upper pole left kidney, likely a cyst with adjacent cortical scarring. Left lower pole 7 mm cortical hypodensity too small to characterize. No hydronephrosis. Stomach and bowel: No evidence of bowel obstruction or acute bowel abnormality. Appendix: No evidence of appendicitis. Intraperitoneal space: No free air. No significant fluid collection. Vasculature: No acute abnormality. Aortoiliac atherosclerotic disease. No AAA. Lymph nodes: No enlarged lymph nodes. Urinary bladder: Urinary bladder is distended and otherwise unremarkable. Reproductive: Unremarkable as visualized. Bones/joints: Destructive right iliac wing metastatic soft tissue lesion which has progressed from prior with soft tissue component measuring 5.5 x 3.6 cm (series 4, image 73), previously 3.8 x 3.2 cm. Associated pathologic fracture of the right iliac wing with callus formation. Mild compression fracture deformity L2, new prior, acute versus subacute, suspect pathologic, appears to involve both the anterior and middle column. Mild retropulsion of the disc osteophyte complex at this level. Left soft tissue metastatic lesion centered at the left anterior 7th rib with soft tissue component measuring 5.6 x 3.2 cm, previously 4.9 x 3.8 cm. Small 8th left lateral metastatic rib lesion, new from prior. Chronic bilateral pars defect at L5 with stable grade 1 anterolisthesis of L5 on S1. Soft tissues: Enhancing soft tissue metastatic lesion anterior to the right hip which measures 2.4 x 2.0 cm (series 4, image 85) and additional soft tissue lesion at the anterior lower chest wall which measures 2.2 x 1.1 cm. Intercostal 8 mm soft t
--- NOTE | 2022-09-22 16:33 | CT_ITS ---
PROCEDURE INFORMATION: Exam: CTA Chest Without And With Contrast Exam date and time: 09/22/2022 5:00 PM Age: 67 years old Clinical indication: Shortness of breath; Patient HX: PT has bone cancer; Additional info: Cancer PT, tachycardic to 140s, hypoxic TECHNIQUE: Imaging protocol: Computed tomographic angiography of the chest without and with contrast. Exam focused on the arteries. 3D rendering (Not supervised by radiologist): MIP and/or 3D reconstructed images were created by the technologist. Radiation optimization: All CT scans at this facility use at least one of these dose optimization techniques: automated exposure control; mA and/or kV adjustment per patient size (includes targeted exams where dose is matched to clinical indication); or iterative reconstruction. Contrast material: ISOVUE 370; Contrast volume: 70 ml; Contrast route: INTRAVENOUS (IV); REPORTING DATA: Count of CT and Cardiac NM exams in prior 12 months: This patient has received 4 known CTs and 0 known cardiac nuclear medicine studies in the 12 months prior to the current study. COMPARISON: CT ANGIO CHEST PE PROTOCOL 07/02/2022 5:51 PM FINDINGS: Pulmonary arteries: No pulmonary artery embolism identified. Aorta: No aortic aneurysm. No aortic dissection or evidence of acute aortic abnormality. Mild thoracic aortic atherosclerosis. Moderate/severe coronary artery calcifications. Lungs: Advanced pulmonary emphysema. Postsurgical changes status post right upper lobectomy are redemonstrated. Parenchymal scarring and bullous changes within the right apex and mid lung with inferior aspect demonstrating somewhat cavitary appearance with thickened wall, degree of thickening has increased from prior. There are patchy airspace and nodular opacities in both lower lobes. There is tree-in-bud nodularity in the left lower lobe. Scattered mucous plugging in the lower lobe airways. Pleural spaces: No pneumothorax. No pleural effusion. Heart: Heart size is normal. No pericardial effusion. Lymph nodes: No adenopathy. Bones/joints: There is an approximally 7.2 cm soft tissue mass centered at the posterior elements of T4 with osseous destruction extending into the mid/posterior T4 vertebral body, involving the spinal canal. Suggestion of new minimal compression deformity of the T4 vertebral body. Mass involves the adjacent portions of the bilateral 4th ribs. Also involves the posterior elements of T3 and T5, which appears to have progressed from prior. New mildly displaced fracture of the C2 spinous process, presumably pathologic. There is a pathologic fracture of the right posterior 4th rib which appears to be subacute versus chronic. Left soft tissue metastatic lesion centered at the left anterior 7th rib with soft tissue component measuring 5.6 x 3.2 cm, previously 4.9 x 3.8 cm. Small 8th left lateral metastatic rib lesion, new from prior. Soft tissues: Soft tissue metastatic lesion at the anterior lower chest wall which measures 2.2 x 1.1 cm. Several new intercostal soft tissue metastatic lesions, largest measures 1.4 cm. These all appear new from prior. IMPRESSION: 1. No pulmonary artery embolism identified. 2. Opacities in both lower lobes most compatible with pneumonia. Underlying lung lesion can not be excluded. 3. Advanced pulmonary emphysema with scarring and bullous changes in the right apex and mid lung some of which demonstrates increased wall thickening. Infectious or neoplastic/metastatic component can not be excluded. 4. Large T4 metastatic lesion involving the vertebral body and posterior elements, spinal canal, and adjacent portions of the bilateral 4th ribs is redemonstrated as detailed above. Also involves the posterior elements of T3 and
--- NOTE | 2022-09-22 16:33 | XR_ITS ---
PROCEDURE INFORMATION: Exam: XR Chest Exam date and time: 09/22/2022 5:16 PM Age: 67 years old Clinical indication: Shortness of breath; Patient HX: PT has bone cancer; Additional info: Hypoxia TECHNIQUE: Imaging protocol: Radiologic exam of the chest. Views: 1 view. COMPARISON: 1. CT ANGIO CHEST PE PROTOCOL 09/22/2022 5:00 PM 2. CR XR CHEST 2V 05/31/2022 4:11 AM FINDINGS: Lungs: Pulmonary emphysema. Patchy opacities in the left lung base, to a lesser degree the right lung base. Stable appearing postsurgical changes of the right upper lobe/superior hilum with adjacent right mid lung somewhat linear opacity. Pleural spaces: No pleural effusion. No pneumothorax. Heart/Mediastinum: Cardiomediastinal silhouette is normal. Bones/joints: No acute abnormality. IMPRESSION: 1. Patchy bibasilar opacities, [id number], most compatible with infectious/inflammatory process. 2. Stable appearing postsurgical changes of the right upper lobe/superior hilum with adjacent right mid lung linear opacity, correlate with findings from recent CT.
[2022-09-22 16:48] LABS: Basophils % 0.2 % (0.1-2.0); Eosinophils # 0.1 K/mm3 (0.0-0.4); Eosinophils % 0.6 % (0.1-12.0); Hematocrit 39.2 % (42.0-52.0); Hemoglobin 12.3 g/dL (14.1-18.0); Lymphocytes % 4.9 % (10-50); Mean Corpuscular HGB Conc 31.4 g/dL (31.8-35.4); Mean Corpuscular Hemoglobin 29.4 pg (27.0-31.2); Mean Corpuscular Volume 93.5 fl (80-94); Mean Platelet Volume 6.8 fl (7.4-10.4); Monocytes % 4.8 % (1.7-9.3); Neutrophils # 18.9 K/mm3 (1.8-7.8); Neutrophils % 89.6 % (37.0-80.0); Platelet Count 354 K/mm3 (142-424); Red Blood Count 4.19 M/mm3 (4.60-6.20); Red Cell Distribution Width 17.9 % (11.5-17.5); White Blood Count 21.1 K/mm3 (4.8-10.8)
[2022-09-22 16:49] LABS: Alanine Aminotransferase 79 U/L (12-78); Albumin Level 3.4 g/dl (3.5-5.0); Albumin/Globulin Ratio 0.8 (1.1-1.8); Alkaline Phosphatase 436 U/L (38-126); Anion Gap 12.1 mEq/L (5-15); Aspartate Amino Transferase 49 U/L (17-59); Bilirubin,Total 0.7 mg/dl (0.2-1.3); Blood Urea Nitrogen 16 mg/dl (9-20); Calcium 8.7 mg/dl (8.4-10.2); Carbon Dioxide 34 mmol/L (22.0-30.0); Chloride 87 mmol/L (98-107); Estimated Glomerular Filt Rate 165 ml/min (>60); GFR (African American) 200 ML/MIN (>60); Globulin 4.2 g/dL (1.3-3.2); Glucose 105 mg/dl (74-100); MANUAL DIFFERENTIAL MANUAL DIFFERENTIAL (MANUAL DIFF); Potassium 4.1 mmoL/L (3.5-5.1); Sodium 129 mmol/L (136-145); Total Protein,Serum 7.6 g/dl (6.3-8.2)
--- NOTE | 2022-09-22 16:53 | HMH.EDGENADL ---
Discharge Plan Disposition Chief Complaint: Urogenital-Male Prescriptions Prescriptions: No Action sennosides [senna] 8.6 mg tablet 8.6 mg PO QID atorvastatin 20 mg tablet 20 mg PO DAILY ipratropium-albuterol 0.5 mg-3 mg(2.5 mg base)/3 mL solution for nebulization 3 ml INHALATION Q4-6H PRN (Reason: Breathing Problems) lidocaine 4 % adhesive patch,medicated 1 patch TOPICAL DAILYP PRN (Reason: Pain) oxycodone-acetaminophen 10-325 mg tablet 1 tab PO TID folic acid 1 mg tablet 1 mg PO DAILY montelukast 10 mg tablet 10 mg PO DAILY loratadine 10 mg tablet 10 mg PO DAILY oxycodone 5 mg tablet 5 mg PO QID metoprolol tartrate 25 mg tablet 25 mg PO BID calcium carbonate-vitamin D3 [Oyster Shell Calcium-Vit D3] 500 mg-5 mcg (200 unit) tablet 1 tab PO DAILY Tab-A-Julien Multivitamin w-iron 18-400 mg-mcg tablet 1 tab PO DAILY Referrals Follow up/Referrals: Franklin Tryo MD [Primary Care Provider] - See instructions Instructions Patient Instructions: DI for Urinary Tract Infection (UTI), DI for Urinary Tract Infection in Children Discharge ED Provider: Meghann Wilson General Adult HPI General Chief complaint: Urogenital-Male Stated complaint: cannot urinate Time Seen by Provider: 09/22/22 16:19 History of Present Illness HPI narrative: This patient is a 67-year-old male with a history of metastatic lung cancer with known bony metastasis status post radiation, currently being evaluated for chemotherapy, presenting to the emergency department for evaluation with concern for inability to urinate all day today. He states that he is also not had a bowel movement in 2 days. He suffers from chronic constipation, likely related to opioid use for his cancer related bone pain. He denies any fevers, chills, chest pain, shortness of breath, rashes, or swelling. He states that he feels like he is needs to pass gas but is not able to. He has new weakness and difficulty ambulating. He also states that he is having intermittent numbness and tingling in his legs. He reports that he had a Sellers catheter in place years ago for prostate issues but has not had to have one since. He denies any history of cardiac issues or dysrhythmias. Related Data Home Medications Medication Instructions Recorded Confirmed atorvastatin 20 mg tablet 20 mg PO DAILY High Cholesterol 09/15/22 09/15/22 calcium carbonate 500 mg-vitamin 1 tab PO DAILY Supplement 09/15/22 09/15/22 D3 5 mcg (200 unit) tablet (Oyster Shell Calcium-Vitamin D3) folic acid 1 mg tablet 1 mg PO DAILY Supplement 09/15/22 09/15/22 ipratropium 0.5 mg-albuterol 3 mg 3 ml inhalation Q4-6H PRN 09/15/22 09/15/22 (2.5 mg base)/3 mL nebulization Breathing Problems soln lidocaine 4 % topical patch 1 patch topical DAILYP PRN Pain 09/15/22 09/15/22 loratadine 10 mg tablet 10 mg PO DAILY Allergy Symptoms 09/15/22 09/15/22 metoprolol tartrate 25 mg tablet 25 mg PO BID High Blood Pressure 09/15/22 09/15/22 montelukast 10 mg tablet 10 mg PO DAILY Allergy Symptoms 09/15/22 09/15/22 multivitamin-ferrous 1 tab PO DAILY Supplement 09/15/22 09/15/22 fumarate-folic acid 18 mg-400 mcg tablet (Tab-A-Julien Multivitamin w-iron) oxycodone 5 mg tablet 5 mg PO QID Pain 09/15/22 09/15/22 oxycodone-acetaminophen 10 mg-325 1 tab PO TID Pain 09/15/22 09/15/22 mg tablet sennosides 8.6 mg tablet (senna) 8.6 mg PO QID Constipation 09/15/22 09/15/22 Allergies Allergy/AdvReac Type Severity Reaction Status Date / Time No Known Allergies Allergy Verified 09/01/22 09:17 [facility] Disclaimer: The information contained in this section may have been updated after the patient was seen, as this information can be updated by other users. Medical History Acute hypokalemia Cavitating mass in right upper lung lobe COPD (chronic obstructive pulmonary disease) Metastatic lung canc
[2022-09-22 17:05] LABS: Troponin I < 0.01 ng/ml (0.00-0.034)
--- NOTE | 2022-09-22 17:05 | PC.NURSE ---
bladder scan volume 607mL
--- NOTE | 2022-09-22 17:09 | PC.NURSE ---
notified of WBC
[2022-09-22 17:14] LABS: Lactic Acid 1.7 mmol/L (0.7-2.1)
[2022-09-22 17:20] LABS: Procalcitonin 0.338 ng/mL (0.0-2.0)
--- NOTE | 2022-09-22 17:51 | PC.NURSE ---
Pt. given warm blanket, no needs at this time.
[2022-09-22 18:14] LABS: Lymphocytes % 4 % (10-50); Monocytes % 3 % (2-9); Neutrophils % 93 % (42-76); Platelet Estimate Normal; Poikilocytosis 1+; Total Cells Counted 100
--- NOTE | 2022-09-22 18:27 | ECG_ITS ---
APPROVED REPORT Exam: Resting ECG HR:120 bpm ECG Measurements Heart Rate 120 AXES QRSd 86 QRS -4 QT 328 T 81 QTc 399 Conclusion Sinus tachycardia Borderline LAD with poor r wave progression ABNORMAL ECG UNCONFIRMED REPORT Electronically signed by : Clay Hassan MD 09/22/2022 21:18:28
[2022-09-22 18:33] LABS: Microscopic, Urine URINE MICROSCOPIC (MICROSCOPIC)
[2022-09-22 18:35] LABS: Appearance,Urine CLEAR (Clear); Bilirubin,Urine Negative (Negative); Blood, Urine Negative (Negative); Color,Urine YELLOW (Yellow); Glucose,Urine (UA) Negative (Negative); Ketones,Urine Negative (Negative); Leukocyte Esterase,Urine Negative (Negative); Nitrate,Urine Negative (Negative); Protein,Urine Negative (Negative); Specific Gravity, Urine <= 1.005 (1.005-1.030)
--- NOTE | 2022-09-22 18:49 | CT_ITS ---
PROCEDURE INFORMATION: Exam: CT Lumbar Spine Without Contrast Exam date and time: 09/22/2022 7:14 PM Age: 67 years old Clinical indication: Low back pain; Additional info: Back pain, worsening mets TECHNIQUE: Imaging protocol: Computed tomography of the lumbar spine without contrast. Radiation optimization: All CT scans at this facility use at least one of these dose optimization techniques: automated exposure control; mA and/or kV adjustment per patient size (includes targeted exams where dose is matched to clinical indication); or iterative reconstruction. REPORTING DATA: Count of CT and Cardiac NM exams in prior 12 months: This patient has received 4 known CTs and 0 known cardiac nuclear medicine studies in the 12 months prior to the current study. COMPARISON: 1. CR XR LUMBAR SPINE 2-3V 09/15/2022 9:[address] ABDOMEN PELVIS W CON 09/22/2022 5:[address] BONY PELVIS 07/02/2022 5:49 PM FINDINGS: Bones/joints: Compression fracture deformity of L2 with mild loss of vertebral body height, new prior, acute versus subacute, likely pathologic, appears to involve both the anterior and middle columns. Prominent posterior disc osteophyte complex at the L2-L3 level. Lytic lesion of the posterior elements of L4 on the right. Chronic bilateral pars defect at L5 with stable grade 1 anterolisthesis of L5 on S1 with advanced degenerative changes at this level, findings similar to prior. Right iliac healing fracture partially imaged, see same day CT abdomen and pelvis for details. Soft tissues: See same day CT chest, abdomen, and pelvis report. IMPRESSION: 1. Mild compression fracture deformity of L2, new prior, acute versus subacute, likely pathologic, appears to involve both the anterior and middle columns. Prominent posterior disc osteophyte complex at the L2-L3 level. 2. Lytic lesion of the posterior elements of L4 on the right. 3. MR could be obtained to further assess for spinal canal/soft tissue involvement as clinically indicated. 4. Please see same day CT chest, abdomen, and pelvis report for additional findings. Findings were verbally communicated at time of CT abdomen and pelvis report via telephone conference at 6:49 PM EDT on 09/22/2022 with Megh[address] with CT abb/pelvis. The findings were acknowledged and understood.
--- NOTE | 2022-09-22 18:49 | CT_ITS ---
PROCEDURE INFORMATION: Exam: CT Cervical Spine Without Contrast Exam date and time: 09/22/2022 7:04 PM Age: 67 years old Clinical indication: Neck pain; Additional info: Back pain, worsening mets TECHNIQUE: Imaging protocol: Computed tomography of the cervical spine without contrast. Radiation optimization: All CT scans at this facility use at least one of these dose optimization techniques: automated exposure control; mA and/or kV adjustment per patient size (includes targeted exams where dose is matched to clinical indication); or iterative reconstruction. REPORTING DATA: Count of CT and Cardiac NM exams in prior 12 months: This patient has received 4 known CTs and 0 known cardiac nuclear medicine studies in the 12 months prior to the current study. COMPARISON: [facility] MR cervical spine wo con 05/18/2018 9:46 AM FINDINGS: Limitations: Images degraded by motion artifacts, extensive of the included brain and calvarium. Bones/joints: No acute fracture or CT evidence of osseous metastatic disease of the cervical spine. Straightening of normal cervical lordosis. Cervical vertebral body heights and alignment are otherwise maintained. Multilevel degenerative changes with multilevel disc space narrowing, uncovertebral and facet hypertrophy, and posterior disc osteophyte complexes with neural foraminal stenosis, most advanced at C5-C6. Mild multilevel spinal canal narrowing, most advanced at C5-C6. Please see separate CT thoracic spine report for significant findings of the included thoracic spine and ribs. Motion artifact of the included sternum. Lungs: Lung apices with pulmonary emphysema. Scarring in the right lung apex. Soft tissues: Unremarkable. IMPRESSION: 1. No acute abnormality of the cervical spine. Degenerative changes as above. 2. Please see separate CT thoracic spine report for metastatic disease involving the included upper thoracic spine and ribs.
--- NOTE | 2022-09-22 18:49 | CT_ITS ---
PROCEDURE INFORMATION: Exam: CT Thoracic Spine Without Contrast Exam date and time: 09/22/2022 7:11 PM Age: 67 years old Clinical indication: Pain in thoracic spine; Additional info: Back pain, worsening mets TECHNIQUE: Imaging protocol: Computed tomography of the thoracic spine without contrast. Radiation optimization: All CT scans at this facility use at least one of these dose optimization techniques: automated exposure control; mA and/or kV adjustment per patient size (includes targeted exams where dose is matched to clinical indication); or iterative reconstruction. REPORTING DATA: Count of CT and Cardiac NM exams in prior 12 months: This patient has received 4 known CTs and 0 known cardiac nuclear medicine studies in the 12 months prior to the current study. COMPARISON: CR XR THORACIC SPINE 3V 04/11/2022 10:51 AM COMPARISON MORE: CT ANGIO CHEST PE PROTOCOL 07/02/2022 5:51 PM FINDINGS: Bones/joints: There is an approximally 7.2 cm soft tissue mass centered at the posterior elements of T4 with osseous destruction extending into the mid/posterior T4 vertebral body, involving the spinal canal. Suggestion of new minimal compression deformity of the T4 vertebral body. Mass involves the adjacent portions of the bilateral 4th ribs, possibly the left 5th rib. Also involves the posterior elements of T3 and T5, which has progressed from prior. New mildly displaced fracture of the C2 spinous process, presumably pathologic. Few additional small lucencies, for example, posterior inferior T7 vertebral body, posterior superior T10 vertebral body, and posterior cortex of T11, may represent metastatic lesions. There is a pathologic fracture of the right posterior 4th rib which appears to be subacute versus chronic with callus formation. Multilevel degenerative changes of the included spine. Soft tissues: Please see same day CT chest, abdomen, and pelvis for additional findings. IMPRESSION: 1. 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 Also involves the posterior elements of T3 and T5 which has progressed from prior. There appears to be new minimal vertebral body compression fracture deformity of T4. 2. New mildly displaced fracture of the T2 spinous process, presumably pathologic. 3. Few additional small vertebral body lucencies as above, metastatic lesions can not be excluded. 4. Please see same day CT chest, abdomen, and pelvis for additional findings.
--- NOTE | 2022-09-22 19:30 | PC.NURSE ---
called [facility] for this pt per ER Doctor about being transferred. All information was given to Maria Eugenia at transfer center and advised they would call us back
--- NOTE | 2022-09-22 19:50 | PC.NURSE ---
called back and is speaking with our ER Doctor now
--- NOTE | 2022-09-22 19:52 | PC.NURSE ---
I spoke with [facility], he stated that 1gm starting dose for vanc is good.
--- NOTE | 2022-09-22 19:58 | PC.NURSE ---
ER Doctor spoke with [facility] and advised they would have to call back as the power shared images didnt go thru the !rst time and we are resending them
--- NOTE | 2022-09-22 20:24 | PC.NURSE ---
pre authorizations faxed for [employer]
--- NOTE | 2022-09-22 20:26 | PC.NURSE ---
called report to Chelita VASQUEZ at ED
[2022-09-22 20:29] LABS: Troponin I < 0.01 ng/ml (0.00-0.034)
--- NOTE | 2022-09-22 20:33 | PC.NURSE ---
EMS notified that pt is ready for transport
== END 2022-09-22 21:08 | disposition short-term general hospital (02) ==
PROVIDERS: Emergency Provider Emergency Medicine; PCP Family Medicine
DX: R33.9 Retention of urine, unspecified (principal); D72.829 Elevated white blood cell count, unspecified; E87.1 Hypo-osmolality and hyponatremia; R00.0 Tachycardia, unspecified; C34.90 Malignant neoplasm of unspecified part of unspecified bronchus or lung; J44.9 Chronic obstructive pulmonary disease, unspecified; C79.51 Secondary malignant neoplasm of bone; F17.210 Nicotine dependence, cigarettes, uncomplicated
CPT/HCPCS: 36415; 51702; 71045; 71275; 72125; 72128; 72131; 74177; 80053; 81001; 83605; 84145; 84484; 85007; 85025; 87040; 93005; 93041; 96361; 96374; 96375; 96376; 99285; J2405; J3370; Q9967

== ENCOUNTER → 2022-11-03 17:16 | Outpatient (CLI) | payer MEDICARE, OTHER, SELFPAY ==
[2022-11-03 18:31] LABS: Microscopic, Urine URINE MICROSCOPIC (MICROSCOPIC)
[2022-11-03 19:01] LABS: Appearance,Urine Cloudy (Clear); Color,Urine Orange (Yellow); PH,Urine >= 9.0 (5.0-8.5); Protein,Urine 3+ (Negative)
[2022-11-03 19:02] LABS: Bilirubin,Urine 2+ (Negative); Blood, Urine 3+ (Negative); Glucose,Urine (UA) Trace (Negative); Ketones,Urine Trace (Negative); Leukocyte Esterase,Urine 2+ (Negative); Nitrate,Urine Positive (Negative)
[2022-11-03 19:36] LABS: Bacteria,Urine 3+ /lpf; RBC,Urine TNTC #/hpf (0-3); Squamous Epithelial Cell,Urine Occasional #/hpf (0-5); WBC,Urine 20-50 #/hpf (0-3)
== END ==
LOC: LAB.DROPOF 17:22
PROVIDERS: PCP Family Medicine Hospice and Palliative Medicine; Visit Provider Family Medicine Hospice and Palliative Medicine
DX: N39.0 Urinary tract infection, site not specified (principal); B96.1 Klebsiella pneumoniae [K. pneumoniae] as the cause of diseases classified elsewhere; B96.4 Proteus (mirabilis) (morganii) as the cause of diseases classified elsewhere
CPT/HCPCS: 81001; 87086; 87088; 87186